=== PATIENT | female | born 1940 | race Caucasian/White ===

== ENCOUNTER → 2016-03-25 | Outpatient (CLI) | payer MEDICARE, BC ==
[~2016-03-25] MED LIST: ALBU6.7H INH; AMLO10 PO; AMLO10TA2 PO; ATOR40TA16 PO; AZIT500T2 PO; CEPH500C PO; CICL8KIT2 TOPICAL; DOXY100C PO; ESZO1TAB3 PO; ESZO1TAB4 PO; ESZO3TAB4 PO; FERR325T PO; GABA100C4 PO; HYDR2.5C TOPICAL; LORA1TAB12 PO; LOSA100T PO; METF-382 PO; METO25TA3 PO; OMEP40CA2 PO; PERC5TAB12 PO; PERI8.6T PO; PULM90IN INH; SALM50I INH; SITA1TAB2 PO; TELM1TAB PO; TRAM50TA PO; Test Strips; VALS1TAB64 PO
[2016-03-25 12:26] LABS: POTASSIUM 4.3 MEQ/L (3.5-5.1)
== END ==
LOC: CLAB 11:28
PROVIDERS: ATTEND Internal Medicine Interventional Cardiology
DX: R94.31 Abnormal electrocardiogram [ECG] [EKG] (principal); R94.39 Abnormal result of other cardiovascular function study; I77.9 Disorder of arteries and arterioles, unspecified; I25.10 Atherosclerotic heart disease of native coronary artery without angina pectoris; R42 Dizziness and giddiness; I10 Essential (primary) hypertension; E78.2 Mixed hyperlipidemia; Z68.26 Body mass index [BMI] 26.0-26.9, adult
CPT/HCPCS: 36415; 82565; 84132; 84295; 84520

== ENCOUNTER → 2016-04-06 | Outpatient (CLI) | payer MEDICARE, BC ==
[~2016-04-06] VITALS: Ht 175.3 cm; Wt 78.2 kg
[~2016-04-06] MED LIST changes: +BENZOCAINE 20% ORAL SPR 60 ML CAN OROPHARYNG ONE; +LIDOCAINE HCL 2% 100 MG/5 ML SYRINGE OTHER ONE
[2016-04-06 07:12] VITALS: BP 163/68; PULSE 60; RESP 16; TEMP 97.6; O2SAT 96
== END ==
LOC: HEND 06:39
PROVIDERS: ATTEND Internal Medicine Gastroenterology
DX: K21.0 Gastro-esophageal reflux disease with esophagitis (principal)
CPT/HCPCS: 91010

== ENCOUNTER 2016-07-20 09:30 | Inpatient (IN) | payer MEDICARE, BC ==
[~2016-07-20] VITALS: Ht 177.8 cm; Wt 72.9 kg
[2016-07-20] VITALS (9 sets, daily range): BP systolic 101–190; BP diastolic 50–91; PULSE 74–92; RESP 16–20; TEMP 98–98.1; O2SAT 95–98
[~2016-07-20 09:30] MED LIST changes: -AMLO10 PO; -AMLO10TA2 PO; -AZIT500T2 PO; -BENZOCAINE 20% ORAL SPR 60 ML CAN OROPHARYNG ONE; -CEPH500C PO; -CICL8KIT2 TOPICAL; -DOXY100C PO; -ESZO1TAB4 PO; -ESZO3TAB4 PO; -FERR325T PO; -GABA100C4 PO; -LIDOCAINE HCL 2% 100 MG/5 ML SYRINGE OTHER ONE; -PERC5TAB12 PO; -PERI8.6T PO; -TELM1TAB PO; -TRAM50TA PO; -VALS1TAB64 PO
[2016-07-20] MEDS ORDERED: SODIUM CHLOR 0.9% 1000 ML INJ 1,000 ML IV ONE ×2 (09:39→11:15)
[2016-07-20] MEDS ORDERED: ESZO3TAB4 PO (09:42)
[2016-07-20 09:53] LABS: I-STAT POTASSIUM 3.5 MMOL/L (3.5-4.9); I-STAT SODIUM 127 MMOL/L (138-146)
[2016-07-20 09:55] LABS: BASOPHIL # 0.1 TH/MM3 (0-0.2); BASOPHIL % 0.6 % (0.0-2.0); EOSINOPHIL # 0.1 TH/MM3 (0-0.4); EOSINOPHIL % 0.6 % (0.0-4.0); HEMATOCRIT 41.8 % (35.0-46.0); HEMO FLAGS DIFF FINAL; LYMPH % 20.2 % (9.0-44.0); LYMPHOCYTE # 2.3 TH/MM3 (1.0-4.8); MEAN CELL VOLUME 84.5 FL (80.0-100.0); MEAN CORPUSCULAR HEMOGLOBIN 28.8 PG (27.0-34.0); MONO % 7.8 % (0.0-8.0); NEUT % 70.8 % (16.0-70.0); PLATELET COUNT 322 TH/MM3 (150-450); RED BLOOD COUNT 4.94 MIL/MM3 (4.00-5.30); RED CELL DISTRIBUTION WIDTH 15.2 % (11.6-17.2); WHITE BLOOD COUNT 11.4 TH/MM3 (4.0-11.0)
--- NOTE | 2016-07-20 09:56 | RADRPT ---
EXAM DATE/TIME: 07/20/2016 09:43 [place] COMPARISON: No previous studies available for comparison. INDICATIONS : Aphasia, which has resolve. Fall with laceration to back of head RADIATION DOSE: 56.35 CTDIvol (mGy) This report was called by Alfred Moran at 09 50 MEDICAL HISTORY : Unobtainable SURGICAL HISTORY : Unobtainable ENCOUNTER: Initial ACUITY: 1 day PAIN SCALE: 3/10 LOCATION: occipital TECHNIQUE: Multiple contiguous axial images were obtained of the head. Using automated exposure control and adj ustment of the mA and/or kV according to patient size, radiation dose was kept as low as reasonably a chievable to obtain optimal diagnostic quality images. FINDINGS: The ventricles are symmetric and normal. No abnormal extra-axial fluid collections are identified. Th ere is no evidence of intracranial mass or hemorrhage. There is patchy mild chronic appearing white m atter disease. There is scalp swelling in the high convexity left parietal region without evidence of underlying sku ll fracture. CONCLUSION: No acute intracranial findings El Simon MD on July 20, 2016 at 9:48 Board Certified Radiologist. This report was verified electronically.
[2016-07-20 10:03] LABS: APTT (PATIENT) 25.9 SEC (24.3-30.1); PROTHROMBIN TIME - PATIENT 10.9 SEC (9.8-11.6)
[2016-07-20 10:14] LABS: BETA HCG QUANT LESS THAN 1 MIU/ML (0-5)
--- NOTE | 2016-07-20 10:14 | PD ---
HPI Chief Complaint: Stroke Alert Time Seen by Provider: 09:39 Travel History International Travel<30 days: No Contact w/Intl Traveler<30days: No Traveled to known affect area: No History of Present Illness HPI 76-year-old female came to the emergency room brought by EMS as a stroke alert. As per the history by wallpaper cleaner and patient she got out of her bed and got dizzy and lightheaded. She felt like she was going to pass out and lost her balance. Her who is 77 years old tried to catch her but was unable to. Patient ended up landing on the floor and smacked the back of her head. Patient denies complete loss of consciousness at any point and she had bleeding from her scalp due to the fall. EMS was called and when they had her in the ambulance being transported patient started to have trouble speaking and getting her words out. As per the paramedics this was abrupt. At one second she was speaking fluently and the next she was having trouble getting her words out. Even the patient noticed this. This was at 9:12 AM. That is when a stroke alert was called. Patient takes 1 baby aspirin every day. By the time she appeared in the emergency room she seemed a little dazed but was answering questions slowly but appropriately. She was AAO 3. Vital signs were relatively stable. Her head was bandaged by the paramedics. Patient says that her last tetanus shot was within past 5 years. 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 [facility] Past Medical History Narrative Medical List of her past medical, surgical, social and family history is reviewed from the nursing note. Arthritis: Yes Asthma: Yes Autoimmune Disease: No Anxiety: Yes (lorazepam) Depression: No Cancer: No Cardiovascular Problems: No Chemotherapy: No Diabetes: Yes Patient Takes Glucophage: Yes (METFORMIN ) Endocrine: Yes Gastrointestinal Disorders: Yes (REFLUX) Genitourinary: No Hepatitis: No Hiatal Hernia: Yes Hypertension: Yes Immune Disorder: No Musculoskeletal: Yes (LUMBAR/SACRAL SX) Neurologic: No Psychiatric: No Reproductive: No Respiratory: Yes (ASTHMA) Immunizations Current: Yes Radiation Therapy: No Thyroid Disease: No Past Surgical History Abdominal Surgery: No AICD: No Cardiac Surgery: No Ear Surgery: No Endocrine Surgery: No Eye Surgery: Yes Genitourinary Surgery: No Gynecologic Surgery: No Joint Replacement: Yes Oral Surgery: No Pacemaker: No Thoracic Surgery: No Social History Alcohol Use: No Tobacco Use: No Substance Use: No Allergies-Medications (Allergen,Severity, Reaction): Coded Allergies: No Known Allergies (Verified , 07/20/16) Comments No known drug allergies. Reported Meds & Prescriptions Reported Meds & Active Scripts Active Pulmicort Flexhaler (Budesonide Powder Inh) 90 Mcg/Act Inhp 90 Mcg INH Q12HR Omeprazole 40 Mg Cap 40 Mg PO DAILY Metoprolol Tartrate 25 Mg Tab 25 Mg PO BID Metformin ER (Metformin HCl) 1,000 Mg Zohreh 2,000 Mg PO HS With evening meal Atorvastatin (Atorvastatin Calcium) 40 Mg Tab 40 Mg PO HS Losartan (Losartan Potassium) 100 Mg Tab 100 Mg PO DAILY Januvia (Sitagliptin Phosphate) 100 Mg Tab 100 Mg PO DAILY Lorazepam 1 Mg Tab 1 Mg PO BID PRN Reported Lunesta (Eszopiclone) 3 Mg Tab 3 Mg PO HS PRN Serevent Diskus Inh (Salmeterol Xinafoate) 50 Mcg/Act Aero 2 Inhaler INH DAILY Proventil Hfa 6.7 GM Inh (Albuterol Sulfate) 90 Mcg/Act Aer 2 Puff INH Q4H PRN Narrative Medication List of her home medications reviewed from the nursing note. Review of Systems Except as stated in HPI: all other systems reviewed are Neg Physical Exam Narrative GENERAL: Awake, seems a little confused, mild distress SKIN: Focused skin assessment warm/dry. Pale HEAD: Occipital area of the scalp is bandaged. Underneath there is clotted blood that's mattering the hair. Unable to currently determine the exact laceration spot because of this. EYES: Pupils equal and round. No scleral icterus. No injection or drainage. ENT: No nasal bleeding or discharge. Mucous membranes pink and moist. NECK: Trachea midline. No JVD. CARDIOVASCULAR: Regular rate and rhythm. No murmur appreciated. RESPIRATORY: No accessory muscle use. Clear to auscultation. Breath sounds equal bilaterally. GASTROINTESTINAL: Abdomen soft, non-tender, nondistended. Hepatic and splenic margins not palpable. MUSCULOSKELETAL: No obvious deformities. No clubbing. No cyanosis. No edema. NEUROLOGICAL: Awake and alert. No obvious cranial nerve deficits. Motor grossly within normal limits. Normal speech. Patient is slightly confused and answering questions and slightly slow. However NIH stroke score is 0. PSYCHIATRIC: Appropriate mood and affect; insight and judgment normal. Data Data Last Documented VS Vital Signs Date Time Temp Pulse Resp B/P Pulse Ox O2 Delivery O2 Flow Rate FiO2 07/20/16 09:35 98 Nasal Cannula 2.00 07/20/16 09:33 74 18 190/91 Orders Diet Npo (07/20/16 Breakfast) Activity Bed Rest (07/20/16 ) Electrocardiogram (07/20/16 ) I-Stat Creatinine (07/20/16 09:39) I-Stat Profile (07/20/16 09:39) Prothrombin Time / Inr (Pt) (07/20/16 09:39) Act Partial Throm Time (Ptt) (07/20/16 09:39) Complete Blood Count With Diff (07/20/16 09:39) Fibrinogen (07/20/16 09:39) Creatine Kinase (Cpk) (07/20/16 09:39) Troponin I (07/20/16 09:39) Ua Includes Microscopic (07/20/16 09:39) Drug Screen, Random Urine (07/20/16 09:39) Type And Screen (07/20/16 09:39) Ct Brain W/O Iv Contrast(Rout) (07/20/16 ) Beta Hcg (Quant/Titer) (07/20/16 09:39) Consult Neurology (07/20/16 ) Blood Glucose (07/20/16 09:39) Ecg Monitoring (07/20/16 09:39) Neuro Checks Q2HX12,Q4H (07/20/16 09:39) Nursing Bedside Swallow Assess .ONCE (07/20/16 09:39) Iv Access Insert/Monitor (07/20/16 09:39) NPO (07/20/16 09:39) Oximetry (07/20/16 09:39) Oxygen Administration (07/20/16 09:39) Sodium Chlor 0.9% 1000 Ml Inj (Ns 1000 M (07/20/16 09:39) Resp Oxygen Dariel C Titrat 1-4 L (07/20/16 09:39) Cath For Specimen (07/20/16 09:39) (Hub Use Only)Inp Phy Cons/Ref (07/20/16 ) Morphine Inj (Morphine Inj) (07/20/16 10:45) Ondansetron Inj (Zofran Inj) (07/20/16 10:45) Complete Blood Count With Diff (07/20/16 11:09) Sodium Chlor 0.9% 1000 Ml Inj (Ns 1000 M (07/20/16 11:15) Admit Order (Ed Use Only) (07/20/16 11:17) Us Carotid Arteries Comp Bilat (07/20/16 ) Labs Laboratory Tests Test 07/20/16 07/20/16 09:32 11:15 White Blood Count 11.4 TH/MM3 13.5 TH/MM3 Red Blood Count 4.94 MIL/MM3 4.28 MIL/MM3 Hemoglobin 14.2 GM/DL 12.0 GM/DL Bedside Hemoglobin 15.3 G/DL Hematocrit 41.8 % 36.6 % Bedside Hematocrit 45.0 % Mean Corpuscular Volume 84.5 FL 85.5 FL Mean Corpuscular Hemoglobin 28.8 PG 28.0 PG Mean Corpuscular Hemoglobin 34.0 % 32.8 % Concent Red Cell Distribution Width 15.2 % 15.3 % Platelet Count 322 TH/MM3 316 TH/MM3 Mean Platelet Volume 7.9 FL 7.7 FL Neutrophils (%) (Auto) 70.8 % 77.1 % Lymphocytes (%) (Auto) 20.2 % 15.5 % Monocytes (%) (Auto) 7.8 % 6.8 % Eosinophils (%) (Auto) 0.6 % 0.3 % Basophils (%) (Auto) 0.6 % 0.3 % Neutrophils # (Auto) 8.0 TH/MM3 10.4 TH/MM3 Lymphocytes # (Auto) 2.3 TH/MM3 2.1 TH/MM3 Monocytes # (Auto) 0.9 TH/MM3 0.9 TH/MM3 Eosinophils # (Auto) 0.1 TH/MM3 0.0 TH/MM3 Basophils # (Auto) 0.1 TH/MM3 0.0 TH/MM3 CBC Comment DIFF FINAL DIFF FINAL Differential Comment Prothrombin Time 10.9 SEC Prothromb Time International 1.0 RATIO Ratio Activated Partial 25.9 SEC Thromboplast Time Fibrinogen 389 mg/dL Bedside Sodium 127 MMOL/L Bedside Potassium 3.5 MMOL/L Bedside Chloride 90 MMOL/L Bedside Blood Urea Nitrogen 6 MG/DL Bedside Creatinine 0.7 MG/DL Bedside Glucose 137 MG/DL Total Creatine Kinase 45 U/L Troponin I LESS THAN 0.02 NG/ML Human Chorionic Gonadotropin, LESS THAN 1 Quant MIU/ML Blood Type B POSITIVE Antibody Screen NEGATIVE MDM Medical Decision Making Medical Screen Exam Complete: Yes Emergency Medical Condition: Yes Medical Record Reviewed: Yes Interpretation(s) Twelve-lead EKG was reviewed by me. Normal sinus rhythm, left axis deviation, old anterior and inferior NC, nonspecific ST-T wave changes. Heart rate of 75 bpm. Differential Diagnosis TIA, intracranial bleed, concussion Narrative Course 10:[address] scan report is within normal limits. After returning from CT patient was fully awake and answering questions appropriately. Her is in the room and gave additional history saying that patient has been presyncopal previous 2 times in this past 1 week. The patient also told me that she has had some numbness and weakness of her left upper extremity that lasted for 10 minutes few days ago. I discussed the case with Dr. Singer who is guest relations receptionist for neurology since a stroke alert was called. He agreed with the fact that since all the symptoms have resolved currently this does not qualify for a stroke alert any longer. Since all the workup is so far negative I'll admit her for TIA. The nurses cleaning up the wound so that I can take a look at the laceration which might require nguyen. 10:52 AM awaiting for the residents to call back for admission. The tech is currently cleansing the wound so that the blood is off and I can take a look at the wound after staple. Patient has been complaining of headache meanwhile. I' ve ordered morphine and Zofran. 11:31 AM patient had an episode where she became unresponsive although eyes were open. The nurses called me in the room. This was in the middle of cleaning her wound. I went to see the patient she was pale, eyes open. I asked her how she was feeling and she tried to "mouth the word" okay with no sound came out. She was asked to squeeze my hand and she squeezed it. Seems like she was following commands but mostly phonate. Her blood pressure was unrecordable and there was a lot of blood from the scalp wound that soaked multiple towels and sheets. I asked the nurses to take the wet sheets off and I had to cut the hair in order to get to the scalp laceration. Finally I noticed a 2 cm laceration in the occipital area. I stapled it with 5 nguyen. Ice pack was applied to keep the bleeding down. Patient was covered with multiple warm blankets. I let the blood pressure was recorded initially as 100 systolic followed by 95 systolic. She was getting 1 L of IV fluid wide open with a pressure back. I was just told by the nurse that her current blood pressure is 135 systolic. Spoke with the residents and asked them to admit her to the CICU. In my opinion the syncopal episode could've been vasovagal or from the blood loss and hypertension. I have ordered a second CBC to see the H& H. Critical Care Narrative Aggregate critical care time was 60 minutes. Time to perform other separately billable procedures was not included in the critical care time. My time did not include minutes spent treating any other patients simultaneously or on activities that did not directly contribute to the patient's treatment. The services I provided to this patient were to treat and/or prevent clinically significant deterioration that could result in: Initial stroke alert, playful unresponsive., Scalp hemorrhage, hypotension , fluid resuscitation I provided critical care services requiring my management, as noted below: Chart data review, documentation time, medication orders and management, vital sign assessments/reviewing monitor data, ordering and reviewing lab tests, ordering and interpreting/reviewing x-rays and diagnostic studies, care of the patient and discussion of the patient with the admitting physicians. Procedures EKG Prior to Arrival: Yes Physician Communication Physician Communication Dr. Singer Diagnosis Primary Impression: TIA (transient ischemic attack) Qualified Code: G45.9 - Transient cerebral ischemia, unspecified type Additional Impressions: Pre-syncope Head injury Qualified Code: S09.90XA - Head injury, initial encounter Scalp laceration Qualified Code: S01.01XA - Scalp laceration, initial encounter Hyponatremia Admitting Information Admitting Physician Requests: Observation Darren Moran MD July 20, 2016 10:14
[2016-07-20 10:21] LABS: CREATINE KINASE 45 U/L (26-192)
[2016-07-20] MEDS ORDERED: MORPHINE SULFATE 4 MG/ML INJ IV PUSH ONE (10:45)
[2016-07-20] MEDS ORDERED: ONDANSETRON HCL 4 MG/2 ML VIAL IV PUSH ONE (10:45)
[2016-07-20 11:26] LABS: AUTOMATED NEUTROPHIL # 10.4 TH/MM3 (1.8-7.7); BASOPHIL % 0.3 % (0.0-2.0); EOSINOPHIL % 0.3 % (0.0-4.0); HEMATOCRIT 36.6 % (35.0-46.0); HEMO FLAGS DIFF FINAL; LYMPH % 15.5 % (9.0-44.0); LYMPHOCYTE # 2.1 TH/MM3 (1.0-4.8); MEAN CELL VOLUME 85.5 FL (80.0-100.0); MEAN CORPUSCULAR HGB CONC 32.8 % (32.0-36.0); MONO % 6.8 % (0.0-8.0); NEUT % 77.1 % (16.0-70.0); PLATELET COUNT 316 TH/MM3 (150-450); RED BLOOD COUNT 4.28 MIL/MM3 (4.00-5.30); RED CELL DISTRIBUTION WIDTH 15.3 % (11.6-17.2); WHITE BLOOD COUNT 13.5 TH/MM3 (4.0-11.0)
--- NOTE | 2016-07-20 11:35 | HHI.HP ---
[facility] Service Family Medicine [facility] Zach Wilson Primary Care Physician Antonio Lr MD Admission Diagnosis syncope, scalp hemorrhage, TIA Diagnoses: International Travel<30 Days: No Contact w/Intl Traveler<30days: No Known Affected Area: No History of Present Illness This is a 76-year-old female presented today via [facility] after sustaining a fall. Apparently the patient got up this morning and felt dizzy and lightheaded. She lost her balance and fell hitting the back of her head on the ground. It does not appear that the patient lost any consciousness but had significant bleeding from her head injury. EMS was called and during transport the patient has what sounds like an expressive aphasia. Per the paramedics this was abrupt in onset. She was brought in by stroke alert. By this and the patient arrived in the ER she was completely alert and oriented and her speech was intact. It was slow but she will appeared to be almost back to her baseline. ER physician spoke with the neurologist on-call and because the patient's neurological symptoms had essentially resolved the stroke alert was canceled. The patient's bandage was removed from her head laceration in the ER, a large amount of blood and clots were removed. During this time the patient became pale and had decreased responsiveness. She was given some IV fluids and her laceration was stapled. At this point she became more alert. Patient's hemoglobin was stable at 14 upon admission, it was repeated due to the significant blood noted in her laceration, and is now 12. The patient has been is at bedside and reported that the patient has had 2 presyncopal events recently. During my exam the patients mental status waxed and waned. At times she was alert and appropriate, at other times, which was the majority, she responded in appropriately and had a difficult time finding her words. The patient does exam that she fell today because she felt dizzy. She states that she was conscious through the entire event. She states she hit her head on the door way and her came to help her. She states for the past two weeks she has not felt well. She states she felt that she has been "warming up". I asked if she felt like she was warm like having a fever and she said no. She agrees that she is having a hard time saying her words although she knows what she wants to say, and that this started when she was in [place]. (Thalia Hansen MD R3) Review of Systems ROS Limitations: Clinical Condition, Altered Mental Status, Other Cardiovascular: DENIES: Chest pain, Palpitations, Syncope Gastrointestinal: DENIES: Abdominal pain Musculoskeletal: COMPLAINS OF: Joint pain, Back pain Neurologic: COMPLAINS OF: Abnormal gait, Headache, Localized weakness, Speech Problems, Poor Balance (Thalia Hansen MD R3) Past Family Social History Past Medical History Diabetes, asthma, hyperlipidemia, hypertension, gastroparesis, basal cell carcinoma, history of anxiety Past Surgical History Cataract extraction (2004) cardiac surgery (cardiac cath 01/2000) Reported Medications Pulmicort Flexhaler (Budesonide Powder Inh) 90 Mcg/Act Inhp 90 Mcg INH Q12HR Omeprazole 40 Mg Cap 40 Mg PO DAILY Metoprolol Tartrate 25 Mg Tab 25 Mg PO BID Metformin ER (Metformin HCl) 1,000 Mg Zohreh 2,000 Mg PO HS With evening meal Atorvastatin (Atorvastatin Calcium) 40 Mg Tab 40 Mg PO HS Losartan (Losartan Potassium) 100 Mg Tab 100 Mg PO DAILY Januvia (Sitagliptin Phosphate) 100 Mg Tab 100 Mg PO DAILY Lorazepam 1 Mg Tab 1 Mg PO BID PRN Lunesta (Eszopiclone) 3 Mg Tab 3 Mg PO HS PRN Serevent Diskus Inh (Salmeterol Xinafoate) 50 Mcg/Act Aero 2 Inhaler INH DAILY Proventil Hfa 6.7 GM Inh (Albuterol Sulfate) 90 Mcg/Act Aer 2 Puff INH Q4H PRN ( Thalia Hansen MD R3) Allergies: Coded Allergies: No Known Allergies (Verified , 07/20/16) Physical Exam Vital Signs Vital Signs Date Time Temp Pulse Resp B/P Pulse Ox O2 Delivery O2 Flow Rate FiO2 07/20/16 09:35 98 Nasal Cannula 2.00 07/20/16 09:33 74 18 190/91 98 07/20/16 09:32 73 18 98 Nasal Cannula 07/20/16 09:32 98 Nasal Cannula Physical Exam GENERAL: This is a well-nourished, well-developed patient, very drowsy but arousable SKIN: blood in hair, apprx 2-3cm laceration on scalp occipital region, nguyen present, not actively bleeding HEAD:see above. EYES: Pupils equal round and reactive. Extraocular motions intact. No scleral icterus. No injection or drainage. ENT: Nose without bleeding, purulent drainage or septal hematoma. Throat without erythema, tonsillar hypertrophy or exudate. Uvula midline. Airway patent. NECK: Trachea midline. No JVD or lymphadenopathy. Supple, nontender, no meningeal signs. CARDIOVASCULAR: Regular rate and rhythm without murmurs, gallops, or rubs. RESPIRATORY: Clear to auscultation. Breath sounds equal bilaterally. No wheezes , rales, or rhonchi. GASTROINTESTINAL: Abdomen soft, non-tender, nondistended. No hepato-splenomegaly , or palpable masses. No guarding. MUSCULOSKELETAL: Extremities without clubbing, cyanosis, or edema. No joint tenderness, effusion, or edema noted. No calf tenderness. Negative Homans sign bilaterally. NEUROLOGICAL: Limited due to patient in ability to participate at times due to falling asleep or confusion: Motor and sensory grossly within normal limits. Right pronator drift present. Smile symmetric. Able to furrow eye brows. Expressive aphasia present. Alert to self. Not consistently able to answer questions or follow directions appropriately. Strength LE +. 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 Laboratory Laboratory Tests Test 07/20/16 07/20/16 09:32 11:15 White Blood Count 11.4 13.5 Red Blood Count 4.94 4.28 Hemoglobin 14.2 12.0 Bedside Hemoglobin 15.3 Hematocrit 41.8 36.6 Bedside Hematocrit 45.0 Mean Corpuscular Volume 84.5 85.5 Mean Corpuscular Hemoglobin 28.8 28.0 Mean Corpuscular Hemoglobin 34.0 32.8 Concent Red Cell Distribution Width 15.2 15.3 Platelet Count 322 316 Mean Platelet Volume 7.9 7.7 Neutrophils (%) (Auto) 70.8 77.1 Lymphocytes (%) (Auto) 20.2 15.5 Monocytes (%) (Auto) 7.8 6.8 Eosinophils (%) (Auto) 0.6 0.3 Basophils (%) (Auto) 0.6 0.3 Neutrophils # (Auto) 8.0 10.4 Lymphocytes # (Auto) 2.3 2.1 Monocytes # (Auto) 0.9 0.9 Eosinophils # (Auto) 0.1 0.0 Basophils # (Auto) 0.1 0.0 CBC Comment DIFF FINAL DIFF FINAL Differential Comment Prothrombin Time 10.9 Prothromb Time International 1.0 Ratio Activated Partial 25.9 Thromboplast Time Fibrinogen 389 Bedside Sodium 127 Bedside Potassium 3.5 Bedside Chloride 90 Bedside Blood Urea Nitrogen 6 Bedside Creatinine 0.7 Bedside Glucose 137 Total Creatine Kinase 45 Troponin I LESS THAN 0.02 Human Chorionic Gonadotropin, LESS THAN 1 Quant Blood Type B POSITIVE Antibody Screen NEGATIVE (Thalia Hansen MD R3) Result Diagram: 07/20/16 1115 Imaging Last Impressions Head CT 07/20/16 0000 Signed Impressions: Service Date/Time: Wednesday, July 20, 2016 09:43 - CONCLUSION: No acute intracranial findings El Simon MD (Thalia Hansen MD R3) Assessment and Plan Assessment and Plan 76-year-old female presents after syncopal also with TIA. Code Status Full (patient not able to answer question appropriately) Discussed Condition With ED doc Dr. Eden (Thalia Hansen MD R3) Attending Attestation THIS CASE WAS DISCUSSED WITH THE RESIDENT PHYSICIANS. I HAVE REVIEWED THE RECORD AND AGREE WITH THE ABOVE NOTE AND PLAN OF CARE WAS DISCUSSED. I HAVE AUTHORIZED THE ORDER FOR ADMISSION TO AN IN-PATIENT STATUS. (Mario Eden MD) Problem List: (1) Pre-syncope Status: Acute Plan: Differential diagnosis includes: electrolyte abnormality vs stroke vs vasovagal versus orthostatic vs cardiogenic vs other EKG: sinus rythm, left axis, no ST elevations or depressions noted, trend Troponin negative 1, trend Sodium 127, currently on IV fluids Echo ordered Carotid ultrasound Telemetry orthostatic vitals when patient able to tolerate (2) TIA (transient ischemic attack) Status: Acute Plan: Patient acute onset of expressive aphasia while in route to the ER. CT head negative. MRI/MRA Carotid ultrasounds Echo as above Neuro already consulted and is aware of patient Lipid profile A1c Start aspirin Allow permissive hypertension NIH stroke scale Consult PT (3) Scalp laceration Status: Acute Plan: Significant blood loss noted by ED Physician. Laceration currently repaired with nguyen. (4) Hypertension Status: Chronic Plan: Hold home metoprolol, losartan Allow permissive hypertension. (5) Asthma Status: Chronic Plan: Continue patient's albuterol when necessary and Pulmicort (6) Anxiety disorder Status: Chronic Plan: Hold lorazepam for now given patient's decreased level of alertness (7) Type 2 diabetes mellitus Status: Chronic Plan: Hold patient's metformin and Januvia -Low-dose sliding scale - A1c ordered (8) FEN Status: Acute Plan: Fluids: Status post 1 L bolus. Normal saline 70 cc per hour. Electrolytes: Sodium 127, repeat BMP at 3 PM Nutrition: Bedside swallow been diabetic diet DVT prophylaxis: Bilateral SCDs given significant bleeding from laceration (Thalia Hansen MD R3) Physician Certification 2 Midnight Certification Type: Admission for Inpatient Services Order for Inpatient Services The services are ordered in accordance with Medicare regulations or non- Medicare payer requirements, as applicable. In the case of services not specified as inpatient-only, they are appropriately provided as inpatient services in accordance with the 2-midnight benchmark. Estimated LOS (days): 3 days is the estimated time the patient will need to remain in the hospital, assuming treatment plan goals are met and no additional complications. Post-Hospital Plan: Not yet determined (Thalia Hansen MD R3) Problem Qualifiers (1) TIA (transient ischemic attack): Qualified Code: G45.9 - Transient cerebral ischemia, unspecified type (2) Scalp laceration: Qualified Code: S01.01XA - Scalp laceration, initial encounter Thalia Hansen MD R3 July 20, 2016 11:35 Mario Eden MD July 20, 2016 16:51
[2016-07-20] MEDS ORDERED: GLUCAGON 1 MG/ML VIAL OTHER PRN (11:45)
[2016-07-20] MEDS ORDERED: ASPIRIN 325 MG TAB PO SCH (12:00)
[2016-07-20] MEDS ORDERED: ALBUTEROL SULFATE 90 MCG/ACT HFA 18 GM INHALER INH PRN (12:45)
--- NOTE | 2016-07-20 12:55 | RADRPT ---
EXAM DATE/TIME: 07/20/2016 12:05 [facility] COMPARISON: No previous studies available for comparison. INDICATIONS : Syncope. MEDICAL HISTORY : Hypertension. Hernia, hiatal. Arthritis. Hyperlipidemia. Diabetes. SURGICAL HISTORY : Total knee replacement, right. Cardiac cath. Spinal surgery. ENCOUNTER: Initial ACUITY: 1 day PAIN SCORE: 5/10 LOCATION: Head. PEAK SYSTOLIC VELOCITIES (cm/sec): ICA/CCA RATIO: Right: 1.6 Left: 1.3 ICA: Right: 113 Left: 102 CCA: Right: 69 Left: 81 ECA: Right: 197 Left: 157 VERTEBRAL: Right: 46 antegrade Left: 46 antegrade Elevated flow velocities and ICA/CCA ratios have been found to correlate with increased degrees of vessel stenosis, calculated as percentage of diameter relative to a normal segment of distal ICA/CCA FINDINGS: RIGHT CAROTID: Calcified atherosclerotic plaque involving the carotid bulb and ICA origin with less than 50% narrowi ng by grayscale analysis. The waveforms are within normal limits. LEFT CAROTID: Calcified atherosclerotic plaque involving the carotid bulb and ICA origin with less than 50% narrowi ng by grayscale analysis. The waveforms are within normal limits. VERTEBRAL ARTERIES: Antegrade flow is seen in both vertebral arteries. MISCELLANEOUS: None. CONCLUSION: 1. Calcified plaque bilaterally with less than 50% stenoses. 2. Antegrade flow involving both vertebral arteries. Kurt Mas Jr., MD on July 20, 2016 at 12:51 Board Certified Radiologist. This report was verified electronically.
--- NOTE | 2016-07-20 14:25 | RADRPT ---
EXAM DATE/TIME: 07/20/2016 12:58 [facility] COMPARISON: MRI BRAIN W/O CONTRAST, July 20, 2016, 12:58. CT BRAIN W/O CONTRAST, July 20, 2016, 9:43. INDICATIONS : Decreases level of consciousness after fall with lac on head. MEDICAL HISTORY : Hypertension. Diabetes mellitus type 2. SURGICAL HISTORY : knee replacement, spinal surgery. ENCOUNTER: Initial ACUITY: 1 day PAIN SCORE: 6/10 LOCATION: cranial Please note a normal MRA of the brain does not entirely exclude the possibility of a small aneurysm, nor the possibility of distal intracranial vessel disease. TECHNIQUE: 3D time of flight MRA was performed. Source images, multiplanar STS MIP, and 3D volume MIP reconstru ctions were reviewed. FINDINGS: There is excellent visualization of the major intracranial arteries out to the second-order branch ve ssels. There is no evidence for aneurysm, vessel truncation or stenosis, and no evidence for vascula r malformation. CONCLUSION: Normal examination. El Simon MD on July 20, 2016 at 14:18 Board Certified Radiologist. This report was verified electronically.
--- NOTE | 2016-07-20 16:11 | MB ---
cc: KEREN DESIR MD DATE OF CONSULTATION 07/20/2016 REASON FOR CONSULTATION: Stroke alert. HISTORY OF PRESENT ILLNESS Ms. Díaz is a 76-year-old female who came to the [facility] Emergency Room by EMS as a stroke alert. The patient got out of bed, felt dizzy and lightheaded, and she felt like she was going to pass out and lost her balance. Her tried to catch her and stop her from falling but he was not able to, hence, she landed on the floor and hit the side of the door, questionable this was jammed and hit the back of her head. The patient states that this is the third episode in over a month where she feels lightheaded usually when she is upright position, especially after being long seated or late in bed. Two of those episodes happened where the was able to catch her before she fell. During this incident the patient states that she did not witness any convulsions, foaming, tongue biting or loss of sphincter control and there was no reported postictal confusional state and she always becomes "limp" in his hands. The patient states that she has been having these episodes lately and always related to being up. But this time she fell and hit her head because he was not able to catch her. The patient denies any slurring of speech, double vision, blurred vision. Upon arrival there was bleeding from her scalp due to the fall. However, during the transport there was reported trouble speaking and getting words out, but according to the emergency room physician she was speaking fluently. And then suddenly she had trouble getting the words out. The patient is on aspirin 81 mg daily for the last month. The patient states that she was diagnosed with carotid artery disease. And she reports a TIA in the year 1999 where she felt left side of the face, left upper extremity numbness that lasted 30 minutes. At this time she also reports that on Wednesday she felt the left side of her lip and face along with the left upper extremity being numb for less than 10 minutes with no residual symptoms. The patient has positive family history of stroke, two brothers who are younger than her with a diagnosis of brain aneurysm. Actually the stroke alert was cancelled because the patient did not meet criteria of stroke alert and it was considered a TIA / syncope with head injury and concussion. The patient states that she has had experienced over the last eight day a new headache that is mainly band-like on both sides of the forehead, temples and runs back described as "pulsating" with no visual symptoms and almost constant. No ringing in the ears. She thought that this is a sinus headache. REVIEW OF SYSTEMS A 12-point review of systems is negative except for what is stated in the HPI. PAST MEDICAL HISTORY 1. Diabetes. 2. Asthma. 3. Hyperlipidemia. 4. Hypertension. 5. Gastroparesis. 6. Basal cell cancer. 7. Anxiety. PAST SURGICAL HISTORY 1. Cataract extraction. 2. Cardiac catheterization in the year 1999. FAMILY HISTORY Two brothers with stroke and brain aneurysms. MEDICATIONS 1. Omeprazole. 2. Metoprolol. 3. Metformin. 4. Atorvastatin. 5. Losartan. 6. Januvia. 7. Lorazepam. 8. Lunesta. 9. Proventil. 10. Aspirin 81. ALLERGIES No known allergies. PHYSICAL EXAMINATION GENERAL: Awake, alert, oriented, intact, good historian. Not in distress. HEENT: Site of bleeding and nguyen present in the back of her scalp with a blood on her hair. HEENT: Intact hearing and intact vision. NECK: Trachea in the midline. No signs of meningeal irritation or lymphadenopathy. CARDIOVASCULAR: Regular rate and rhythm. RESPIRATORY: Clear to auscultation. No wheezes. GASTROINTESTINAL: Soft abdomen, nontender. MUSCULOSKELETAL: Extremities without clubbing, cyanosis or edema. Moves extremities equally. NEUROLOGIC: Awake, alert, oriented to time, person and place. Mild slurring of speech / questionable chronic. No element of dysphagia is noted. Cranial nerve examination II-XII are grossly intact. Upper extremities 5/5 bilateral, symmetrical. No abnormal movement. Normal tone. Bilateral lower extremity 5-/5 bilateral hip flexion, hip extension 5/5, knee extension 5-/5 bilateral, symmetrical. Knee flexion 5/5. Foot dorsiflexion and plantar flexion 5/5. Intact sensation bilateral symmetrical. Reflexes 1+ bilateral symmetrical upper extremities bilateral knees with sluggish / diminished bilateral ankle reflexes. Plantars are bilaterally downgoing. LABORATORY DATA White blood cells 13.5, hemoglobin 12, platelet 316.INR 1.0. Sodium 127, BUN 6, creatinine 0.7, glucose 137.CK 45. Troponin less than 0.02. IMAGING - Head CT scan with no acute intracranial finding. - Head MRA normal examination. - Carotid ultrasound calcified plaque bilateral with less than 50% stenosis. Antegrade flow involving both vertebral arteries. DIAGNOSTIC IMPRESSION 1. Syncopal episodes. - Likely etiology given the association with an upright posture with symptoms pertinent cardiovascular etiology. 2. Transient ischemic attack. 3. Carotid artery disease. 4. Positive family history of brain aneurysm. 5. Hypertension. 6. Diabetes. PLAN 1. Neurological checks q. four hourly. 2. MRI brain. 3. Telemetry. 4. Head CTA. 5. Echo. 6. Orthostatic vitals. 7. Fall precautions. 8. DVT prophylaxis. Thank you for the opportunity to participate in the care of your patient. MD ANGELA Pearson/NORMAN /2:52 PM /3:39 PM WING
--- NOTE | 2016-07-20 16:14 | RADRPT ---
EXAM DATE/TIME: 07/20/2016 12:58 [facility] COMPARISON: CT BRAIN W/O CONTRAST, July 20, 2016, 9:43. INDICATIONS : Decreases level of consciousness after fall with lac on head. MEDICAL HISTORY : Hypertension. Diabetes mellitus type 2. SURGICAL HISTORY : knee replacement, spinal surgery ENCOUNTER: Initial ACUITY: 1 day PAIN SCORE: 6/10 LOCATION: cranial TECHNIQUE: Multiplanar, multisequence MRI of the brain was performed without contrast. FINDINGS: CEREBRUM: The ventricles are normal for age. No evidence of midline shift, mass lesion, hemorrhage or acute in farction. No extraaxial fluid collections are seen. The pituitary gland and suprasellar cistern are normal in configuration. WHITE MATTER: Scattered small foci of high T2 signal abnormality involving the periventricular white matter of both cerebral hemispheres. POSTERIOR FOSSA: The cerebellum and brainstem are intact. The 4th ventricle is midline. The cerebellopontine angle is unremarkable. The cerebellar tonsils are normal in position. DIFFUSION IMAGING: No focal areas of restricted diffusion are seen. No evidence of acute infarction. EXTRACRANIAL: The visualized portions of the orbits and paranasal sinuses are unremarkable. Right mastoid air cells are atrophic. Left are normal. Artifact is seen involving the left occipital soft tissues likely fro m soft tissue nguyen. CONCLUSION: 1. No acute intracranial abnormality. 2. Mild chronic small vessel ischemic change. Kurt Mas Jr., MD on July 20, 2016 at 16:06 Board Certified Radiologist. This report was verified electronically.
--- NOTE | 2016-07-20 16:38 | EKG ---
Date Performed: 07/20/2016 Time Performed: 09:53:47 PTAGE: 76 years EKG: Sinus rhythm LEFT AXIS DEVIATION NONSPECIFIC ST & T-WAVE ABNORMALITY ABNORMAL ECG PREVIOUS TRACING : 10/08/2014 14.50 Compared to previous tracing, nonspecific ST/T abnormalitie s are now slightly more pronounced. DOCTOR: Champ Shepherd Interpretating Date/Time 07/20/2016 16:36:55
[2016-07-20] MEDS: INSULIN ASPART SUPPLEMENTAL SCALE SQ SCH ×2 (16:40→21:00)
--- NOTE | 2016-07-20 16:51 | HHI.HP ---
[facility] Service Family Medicine Primary Care Physician Antonio Lr MD Admission Diagnosis syncope, scalp hemorrhage, TIA Diagnoses: (1) Pre-syncope (2) TIA (transient ischemic attack) (3) Scalp laceration (4) Hypertension (5) Asthma (6) Anxiety disorder (7) Type 2 diabetes mellitus (8) FEN International Travel<30 Days: No Contact w/Intl Traveler<30days: No Known Affected Area: No History of Present Illness 76-year-old female presenting to the emergency department after a fall at home, hitting her head and causing a laceration requiring nguyen. She states that she woke up this morning and stood up to begin walking and she felt dizzy/ lightheaded with the room spinning and fell backwards. She struck the posterior aspect of her head on the door frame and sustained a laceration with significant amount of bleeding. She denies losing consciousness and does remember the entire incident. She denies any seizure type activity such as bowel/bladder incontinence or tongue biting. She denies any chest pain or palpitations. She managed to call [facility] and was transported to the hospital. Apparently, during the ride to the hospital she became somewhat disoriented and had expressive aphasia in the paramedics called for stroke alert. The onset of this was sudden and lasted for only a couple of minutes. By the time she presented to the emergency department, she was speaking coherently and was completely back to her baseline without aphasia or other neurologic symptoms. She does endorse a 2 week history of falls that are similar in nature. Stating that usually during a positional change, she will become dizzy and lightheaded causing her to fall. She has not hit her head prior to this incident she says that she is able to get up and sit in a chair for a few hours and will feel normal again. She has not been evaluated for these symptoms. Review of Systems Constitutional: COMPLAINS OF: Fatigue, Dizziness, DENIES: Fever, Chills Eyes: DENIES: Blurred vision, Vision loss, Double Vision Ears, nose, mouth, throat: DENIES: Tinnitus, Hearing loss, Ear Pain Respiratory: DENIES: Cough, Wheezing, Sputum production, Shortness of breath Cardiovascular: DENIES: Chest pain, Palpitations, Syncope, Dyspnea on Exertion Gastrointestinal: DENIES: Abdominal pain, Constipation, Diarrhea, Nausea, Vomiting Musculoskeletal: DENIES: Joint pain, Back pain, Neck pain Neurologic: COMPLAINS OF: Headache, Poor Balance, DENIES: Localized weakness, Seizures Psychiatric: DENIES: Anxiety Past Family Social History Past Medical History Diabetes, asthma, hyperlipidemia, hypertension, gastroparesis, basal cell carcinoma, history of anxiety Past Surgical History Cataract extraction (2004) cardiac surgery (cardiac cath 01/2000) Allergies: Coded Allergies: No Known Allergies (Verified , 07/20/16) Physical Exam Vital Signs Vital Signs Date Time Temp Pulse Resp B/P Pulse Ox O2 Delivery O2 Flow Rate FiO2 07/20/16 14:35 Nasal Cannula 2 07/20/16 09:35 98 Nasal Cannula 2.00 07/20/16 09:33 74 18 190/91 98 07/20/16 09:32 73 18 98 Nasal Cannula 07/20/16 09:32 98 Nasal Cannula Physical Exam GENERAL: Very pleasant elderly appearing female, lying in bed in no obvious distress SKIN: 3 cm laceration on the occipital area of scalp closed with 6 nguyen, dried blood throughout the hair but no obvious active bleeding HEAD: Tender to palpation around the laceration site, no hematoma or crepitus. EYES: Pupils equal round and reactive. Extraocular motions intact. NECK: Trachea midline. No JVD or lymphadenopathy. CARDIOVASCULAR: Regular rate and rhythm without murmurs, gallops, or rubs. RESPIRATORY: Clear to auscultation. Breath sounds equal bilaterally. No wheezes , rales, or rhonchi. GASTROINTESTINAL: Abdomen soft, non-tender, nondistended. MUSCULOSKELETAL: Extremities without clubbing, cyanosis, or edema. NEUROLOGICAL: Awake, alert, oriented 3. Cranial nerves II through XII intact. Face is symmetrical without a short droop. 5/5 strength bilateral upper extremities with sensation intact. Normal cerebellar function with hand flapping, finger to nose, and [id number]. Negative pronator drift Laboratory Laboratory Tests Test 07/20/16 07/20/16 07/20/16 09:32 11:15 14:00 White Blood Count 11.4 13.5 Red Blood Count 4.94 4.28 Hemoglobin 14.2 12.0 Bedside Hemoglobin 15.3 Hematocrit 41.8 36.6 Bedside Hematocrit 45.0 Mean Corpuscular Volume 84.5 85.5 Mean Corpuscular Hemoglobin 28.8 28.0 Mean Corpuscular Hemoglobin 34.0 32.8 Concent Red Cell Distribution Width 15.2 15.3 Platelet Count 322 316 Mean Platelet Volume 7.9 7.7 Neutrophils (%) (Auto) 70.8 77.1 Lymphocytes (%) (Auto) 20.2 15.5 Monocytes (%) (Auto) 7.8 6.8 Eosinophils (%) (Auto) 0.6 0.3 Basophils (%) (Auto) 0.6 0.3 Neutrophils # (Auto) 8.0 10.4 Lymphocytes # (Auto) 2.3 2.1 Monocytes # (Auto) 0.9 0.9 Eosinophils # (Auto) 0.1 0.0 Basophils # (Auto) 0.1 0.0 CBC Comment DIFF FINAL DIFF FINAL Differential Comment Prothrombin Time 10.9 Prothromb Time International 1.0 Ratio Activated Partial 25.9 Thromboplast Time Fibrinogen 389 Bedside Sodium 127 Bedside Potassium 3.5 Bedside Chloride 90 Bedside Blood Urea Nitrogen 6 Bedside Creatinine 0.7 Bedside Glucose 137 Total Creatine Kinase 45 Troponin I LESS THAN 0.02 0.02 Human Chorionic Gonadotropin, LESS THAN 1 Quant Blood Type B POSITIVE Antibody Screen NEGATIVE Result Diagram: 07/20/16 1115 Imaging Last Impressions Head CT 07/20/16 0000 Signed Impressions: Service Date/Time: Wednesday, July 20, 2016 09:43 - CONCLUSION: No acute intracranial findings El Simon MD Assessment and Plan Assessment and Plan 76-year-old female presents after syncopal also with TIA. Problem List: (1) Pre-syncope Status: Acute Plan: TIA versus CVA versus cardiogenic Neurology consulted, appreciate recommendations - EKG: sinus rythm, left axis, no ST elevations or depressions noted, trend - Troponin negative 1, trend - Sodium 127, currently on IV fluids - MRI/MRA brain ordered - Echo ordered - Carotid ultrasound - Telemetry - orthostatic vitals when patient able to tolerate (2) TIA (transient ischemic attack) Status: Acute Plan: Patient acute onset of expressive aphasia while in route to the ER currently asymptomatic Workup above for presyncope Lipid profile A1c Start aspirin Allow permissive hypertension NIH stroke scale Consult PT (3) Scalp laceration Status: Acute Plan: Significant blood loss noted by ED Physician. Laceration currently repaired with nguyen. - Trend CBCs and transfuse if necessary (4) Hypertension Status: Chronic Plan: Hold home metoprolol, losartan - Allow permissive hypertension. (5) Asthma Status: Chronic Plan: Continue patient's albuterol when necessary and Pulmicort (6) Anxiety disorder Status: Chronic Plan: Hold lorazepam for now given patient's decreased level of alertness (7) Type 2 diabetes mellitus Status: Chronic Plan: Hold patient's metformin and Januvia -Low-dose sliding scale - A1c ordered (8) FEN Status: Acute Plan: Fluids: Status post 1 L bolus. Normal saline 70 cc per hour. Electrolytes: Sodium 127, repeat BMP at 3 PM Nutrition: Bedside swallow been diabetic diet DVT prophylaxis: Bilateral SCDs given significant bleeding from laceration Physician Certification 2 Midnight Certification Type: Admission for Inpatient Services Order for Inpatient Services The services are ordered in accordance with Medicare regulations or non- Medicare payer requirements, as applicable. In the case of services not specified as inpatient-only, they are appropriately provided as inpatient services in accordance with the 2-midnight benchmark. Estimated LOS (days): 2 2 days is the estimated time the patient will need to remain in the hospital, assuming treatment plan goals are met and no additional complications. Post-Hospital Plan: Not yet determined Problem Qualifiers (1) TIA (transient ischemic attack): Qualified Code: G45.9 - Transient cerebral ischemia, unspecified type (2) Scalp laceration: Qualified Code: S01.01XA - Scalp laceration, initial encounter Mario Eden MD July 20, 2016 16:51
[2016-07-20] MEDS ORDERED: BUDESONIDE 90 MCG INH SCH (21:00)
[2016-07-20] MEDS ORDERED: IBUPROFEN 400 MG TAB PO PRN (22:30)
[2016-07-20] MEDS ORDERED: ACETAMINOPHEN 325 MG TAB PO PRN (22:30)
[2016-07-20] MEDS: ATORVASTATIN 40 MG TAB PO SCH (22:40)
[2016-07-20] MEDS: ACETAMINOPHEN/HYDROcodone 325 MG/5 MG TAB PO PRN (23:21)
[2016-07-21] VITALS (29 sets, daily range): BP systolic 139–181; BP diastolic 66–100; PULSE 80–122; RESP 18–20; TEMP 98.2–98.4; O2SAT 96–97
[2016-07-21] MEDS: ONDANSETRON HCL 4 MG/2 ML VIAL IV PUSH PRN ×4 (04:09→18:26)
[2016-07-21] MEDS: ACETAMINOPHEN/HYDROcodone 325 MG/5 MG TAB PO PRN ×4 (04:09→18:30)
[2016-07-21 06:50] LABS: AUTOMATED NEUTROPHIL # 12.2 TH/MM3 (1.8-7.7); BASOPHIL % 0.2 % (0.0-2.0); HEMATOCRIT 31.6 % (35.0-46.0); LYMPH % 9.5 % (9.0-44.0); LYMPHOCYTE # 1.4 TH/MM3 (1.0-4.8); MEAN CELL VOLUME 84.4 FL (80.0-100.0); MEAN CORPUSCULAR HEMOGLOBIN 28.9 PG (27.0-34.0); MEAN CORPUSCULAR HGB CONC 34.3 % (32.0-36.0); MONO % 5.7 % (0.0-8.0); NEUT % 84.6 % (16.0-70.0); PLATELET COUNT 285 TH/MM3 (150-450); RED BLOOD COUNT 3.75 MIL/MM3 (4.00-5.30); RED CELL DISTRIBUTION WIDTH 15.1 % (11.6-17.2); WHITE BLOOD COUNT 14.4 TH/MM3 (4.0-11.0)
[2016-07-21 06:58] LABS: HEMO FLAGS AUTO DIFF
[2016-07-21] MEDS: INSULIN ASPART SUPPLEMENTAL SCALE SQ SCH ×4 (07:00→21:00)
--- NOTE | 2016-07-21 07:00 | HHI.FPPN ---
Subjective Remarks Patient seen and examined this am. No overnight events and the patient is afebrile. Patient states she had a hard time remembering things last night. The nurse states the patient was unable to stand for orthostatic vitals because she became dizzy. She did become nausea overnight and vomited. She is requesting breakfast. She denies CP or difficulty breathing. Is requesting a bed side commode, having a hard time urinating on bedpan. Objective Vitals Vital Signs Date Time Temp Pulse Resp B/P Pulse Ox O2 Delivery O2 Flow Rate FiO2 07/20/16 23:00 98.1 90 18 127/60 97 109/55 07/20/16 22:52 95 Nasal Cannula 2.00 07/20/16 19:45 98.0 80 16 123/50 97 111/51 07/20/16 16:00 80 20 101/58 07/20/16 14:35 Nasal Cannula 2 07/20/16 09:35 98 Nasal Cannula 2.00 07/20/16 09:33 74 18 190/91 98 07/20/16 09:32 73 18 98 Nasal Cannula 07/20/16 09:32 98 Nasal Cannula Result Diagram: 07/20/16 1115 Other Results GENERAL: This is a well-nourished, well-developed patient, very drowsy but arousable SKIN: blood in hair, apprx 2-3cm laceration on scalp occipital region, nguyen present, not actively bleeding HEAD:see above. EYES: Pupils equal round and reactive. Extraocular motions intact. No scleral icterus. No injection or drainage. ENT: Nose without bleeding, purulent drainage or septal hematoma. Throat without erythema, tonsillar hypertrophy or exudate. Uvula midline. Airway patent. NECK: Trachea midline. No JVD or lymphadenopathy. Supple, nontender, no meningeal signs. CARDIOVASCULAR: Regular rate and rhythm without murmurs, gallops, or rubs. RESPIRATORY: Clear to auscultation. Breath sounds equal bilaterally. No wheezes , rales, or rhonchi. GASTROINTESTINAL: Abdomen soft, non-tender, nondistended. No hepato-splenomegaly , or palpable masses. No guarding. MUSCULOSKELETAL: Extremities without clubbing, cyanosis, or edema. No joint tenderness, effusion, or edema noted. No calf tenderness. Negative Homans sign bilaterally. NEUROLOGICAL: Motor and sensory grossly within normal limits. Smile symmetric. Able to furrow eye brows. Alert & Orientated x 3. able to answer questions and follow directions appropriately. Strength LE +. Manganese Heater strength symmetric. Imaging Last Impressions Head Magnetic Resonance Angiography 07/20/16 Signed Impressions: Service Date/Time: Wednesday, July 20, 2016 12:58 - CONCLUSION: Normal examination. El Simon MD Head CT 07/20/16 Signed Impressions: Service Date/Time: Wednesday, July 20, 2016 09:43 - CONCLUSION: No acute intracranial findings El Simon MD Carotid Artery Ultrasound 07/20/16 Signed Impressions: Service Date/Time: Wednesday, July 20, 2016 12:05 - CONCLUSION: 1. Calcified plaque bilaterally with less than 50%% stenoses. 2. Antegrade flow involving both vertebral arteries. Kurt Mas Jr., MD Brain MRI 07/20/16 Signed Impressions: Service Date/Time: Wednesday, July 20, 2016 12:58 - CONCLUSION: 1. No acute intracranial abnormality. 2. Mild chronic small vessel ischemic change. Kurt Mas Jr., MD A/P Assessment and Plan 76-year-old female presents after syncopal also with TIA. Discharge Planning D/C pending further work up including ECHO Discussed with Drs. Espinoza and Zach Problem List: (1) Pre-syncope Status: Acute Plan: TIA versus CVA versus cardiogenic Neurology consulted, appreciate recommendations - EKG: sinus rythm, left axis, no ST elevations or depressions noted, trend - Troponin 0.02, .04, .06 - MRI/MRA brain normal - Echo ordered and pending - Carotid ultrasound: Calcified plaque bilaterally with less than 50% stenosis. Antegrade flow involving both vertebral arteries. - Telemetry - orthostatic vitals positive, although patient unable to stand at this time (2) TIA (transient ischemic attack) Status: Acute Plan: Patient acute onset of expressive aphasia while in route to the ER currently asymptomatic Workup above for presyncope Lipid profile A1c Allow permissive hypertension NIH stroke scale Consult PT Need to start aspirin Has been evaluated by neuro: Neuro checks every 4, MRI, telemetry, head CT, echo , orthostatic vitals, fall precautions, DVT prophylaxis (3) Scalp laceration Status: Acute Plan: Significant blood loss noted by ED Physician. Laceration currently repaired with nguyen. - Trend CBCs and transfuse if necessary (4) Hypertension Status: Chronic Plan: Hold home metoprolol, losartan - Allow permissive hypertension. (5) Asthma Status: Chronic Plan: Continue patient's albuterol when necessary and Pulmicort (6) Anxiety disorder Status: Chronic Plan: lorazepam for now given patient's decreased level of alertness (7) Type 2 diabetes mellitus Status: Chronic Plan: Hold patient's metformin and Januvia -Low-dose sliding scale - A1c ordered (8) FEN Status: Acute Plan: Fluids: Normal saline 70 cc per hour. Electrolytes: Sodium 127, repeat BMP at 3 PM Nutrition: Bedside swallow been diabetic diet DVT prophylaxis: start chemical DVT prophylaxis this evening Problem Qualifiers (1) TIA (transient ischemic attack): Qualified Code: G45.9 - Transient cerebral ischemia, unspecified type (2) Scalp laceration: Qualified Code: S01.01XA - Scalp laceration, initial encounter Thalia Hansen MD R3 July 21, 2016 07:00
[2016-07-21 07:22] LABS: HDL CHOLESTEROL 42.8 MG/DL (40.0-60.0); POTASSIUM 3.6 MEQ/L (3.5-5.1)
[2016-07-21 08:17] LABS: SCAN/DIFF AUTO DIFF CONFIRMED
[2016-07-21] MEDS: PANTOPRAZOLE SOD 40 MG DELAYED RELEASE TAB PO SCH (09:11)
--- NOTE | 2016-07-21 13:29 | EC ---
Study Study Date:07/21/2016 STUDY CONCLUSIONS SUMMARY - Procedure narrative: Image quality was fair. The study was technically limited due to poor acoustic window availability. - Left ventricle: The cavity size was normal. Systolic function was normal. The estimated ejection fraction was in the range of 60% to 65%. Although no diagnostic regional wall motion abnormality was identified, this possibility cannot be completely excluded on the basis of this study. Doppler parameters are consistent with abnormal left ventricular relaxation (grade 1 diastolic dysfunction). If LV function is below 40, please consider prescribing an ACEI or ARB or document rationale for non-use. PROCEDURE DATA STUDY STATUS: Elective. Procedure: Transthoracic echocardiography. Image quality was fair. The study was technically limited due to poor acoustic window availability. Scanning was performed from the parasternal, apical, and subcostal acoustic windows. Study completion: The patient tolerated the procedure well. Transthoracic echocardiography. M-mode, complete 2D, complete spectral Doppler, and color Doppler. Height: Height: 70in. Weight: Weight: 169.6lb. Body mass index: BMI: 24.4kg/m^2. Body surface area: BSA: 1.95m^2. Patient status: Inpatient. CARDIAC ANATOMY LEFT VENTRICLE: The cavity size was normal. Systolic function was normal. The estimated ejection fraction was in the range of 60% to 65%. Although no diagnostic regional wall motion abnormality was identified, this possibility cannot be completely excluded on the basis of this study. Doppler parameters are consistent with abnormal left ventricular relaxation (grade 1 diastolic dysfunction). AORTIC VALVE: The valve appears to be grossly normal. Doppler: There was no stenosis. No significant regurgitation. Valve area: 2.27cm^2(VTI). Indexed valve area: 1.16cm^2/m^2 (VTI). Valve area: 2.04cm^2 (Vmax). Indexed valve area: 1.05cm^2/m^2 (Vmax). Mean gradient: 5mm Hg (S). MITRAL VALVE: The valve appears to be grossly normal. Doppler: There was no evidence for stenosis. Trace regurgitation. RIGHT VENTRICLE: Not well visualized. PULMONIC VALVE: Not visualized. Doppler: There was no evidence for stenosis. Trace regurgitation. TRICUSPID VALVE: Not well visualized. Doppler: There was no evidence for stenosis. Trace to mild regurgitation. PERICARDIUM: There was no pericardial effusion. Patient weight: 169.6lb _Ejection fraction:_ 65-75% _Fractional shortening:_ 32% up to 5Kg 5-11.5Kg 11.6-22.9Kg 23-45Kg 45-57Kg Aortic Root 7-13 <17 13-22 17-27 17-27 LA diam 6-13 <23 24-38 33-47 37-40 RVID 10-17 7-15 7-15 7-18 8-17 LVIDd 12-22 <32 24-38 33-47 37-40 LVPW 2-4 3-6 5-7 6-8 7-8 IVS 2-4 3-6 5-7 6-8 7-8 BASIC MEASUREMENTS ADULT NORMAL Left ventricle LV internal dimension, ED, chordal 49.1 mm 43-52 level, PLAX LV internal dimension, ES, chordal 29 mm 23-38 level, PLAX Fractional shortening, chordal level, 41 % >29 PLAX LV posterior wall thickness, ED 8.54 mm IVS/LVPW ratio, ED 1.01 <1.3 Ventricular septum Septal thickness, ED 8.59 mm Aortic valve Leaflet separation 17 mm 15-26 Aorta Root diameter, ED 26 mm Left atrium Anterior-posterior dimension 26 mm Anterior-posterior dimension index 1.33 cm/m^2 <2.2 BASIC MEASUREMENTS ADULT NORMAL Aortic valve Leaflet separation 17 mm 15-26 DOPPLER MEASUREMENTS ADULT NORMAL Main pulmonary artery Pressure, S *36 mm Hg =30 Aortic valve Peak velocity, S 149 cm/s Mean velocity, S 96.7 cm/s VTI, S 24.4 cm Mean gradient, S 5 mm Hg Valve area, VTI 2.27 cm^2 Valve area index, VTI 1.16 cm^2/m^2 Valve area, Vmax 2.04 cm^2 Valve area index, Vmax 1.05 cm^2/m^2 Mitral valve Peak E-wave velocity 69.1 cm/s Peak A-wave velocity 105 cm/s Deceleration time *289 ms 150-230 Peak E/A ratio 0.7 Tricuspid valve Regurgitant peak velocity 266 cm/s Peak RV-RA gradient, S 28 mm Hg Systemic veins Estimated CVP 10 mm Hg Right ventricle RV pressure, S *38 mm Hg <30 Pulmonic valve Peak velocity, S 70.7 cm/s LEGEND: Mean values are shown as u=mean value. Asterisk (*) kirby values outside specified normal range. Prepared and signed by Cullen Nguyen [id number]
[2016-07-21 13:53] LABS: HEMOGLOBIN A1a 1.5 %; HEMOGLOBIN A1b 2.2 %; HEMOGLOBIN Ao 83.8 %; HEMOGLOBIN LA1C 2.1 %; HEMOGLOBIN P3 3.9 %
[2016-07-21 15:47] LABS: BLOOD, URINE NEG (NEG); GLUCOSE,URINE NEG (NEG); KETONE, URINE 10 mg/dL (NEG); MUCUS URINE FEW /lpf (OCC); NITRITE,URINE NEG (NEG); SQUAMOUS EPITHELIAL CELL URINE <1 /hpf (0-5); URINE COLOR LIGHT-YELLOW (YELLW/STRAW)
[2016-07-21 15:53] LABS: AMPHETAMINE, URINE NEG (NEG); BARBITURATES, URINE NEG (NEG); COCAINE, URINE NEG (NEG)
[2016-07-21] MEDS ORDERED: LORazepam 1 MG TAB PO PRN (16:00)
[2016-07-21] MEDS ORDERED: hydrALAZINE HCL 20 MG/ML VIAL IV PUSH PRN (16:00)
[2016-07-21] MEDS: cefTRIAXone INJ 1,000 MG in SODIUM CHLORIDE 0.9% INJ 100 ML IV SCH (16:49)
--- NOTE | 2016-07-21 20:55 | RADRPT ---
EXAM DATE/TIME: 07/21/2016 19:55 [facility] COMPARISON: No previous studies available for comparison. INDICATIONS : Shortness of breath, syncope. MEDICAL HISTORY : Hypertension. Arthritis. Diabetes mellitus type II. SURGICAL HISTORY : None. ENCOUNTER: Initial ACUITY: 2 days PAIN SCORE: 0/10 LOCATION: Bilateral chest FINDINGS: The heart size is normal. There is some mild increased density seen at the left base. The right lung is grossly clear. A significant effusion is not seen. The bony structures are grossly intact. CONCLUSION: Minimal suspected atelectasis or consolidation at the left base. El Menjivar MD on July 21, 2016 at 20:31 Board Certified Radiologist. This report was verified electronically.
[2016-07-21] MEDS: BUDESONIDE 90 MCG INH SCH (21:00)
[2016-07-21] MEDS: METOPROLOL TARTRATE 25 MG TAB PO SCH ×2 (21:00→21:16)
[2016-07-21] MEDS: HEPARIN SODIUM - SQ 10,000 UNITS/ML VIAL SQ SCH (21:12)
[2016-07-21] MEDS: ESZOPICLONE 3 MG TAB PO PRN (21:12)
[2016-07-21] MEDS: ATORVASTATIN 40 MG TAB PO SCH (21:12)
[2016-07-22] VITALS (26 sets, daily range): BP systolic 111–158; BP diastolic 55–79; PULSE 64–92; RESP 16–20; TEMP 97.6–98.6; O2SAT 95–98
[2016-07-22] MEDS: INSULIN ASPART SUPPLEMENTAL SCALE SQ SCH ×4 (06:01→21:00)
[2016-07-22 06:25] LABS: AUTOMATED NEUTROPHIL # 4.3 TH/MM3 (1.8-7.7); BASOPHIL % 0.4 % (0.0-2.0); EOSINOPHIL # 0.2 TH/MM3 (0-0.4); HEMATOCRIT 29.5 % (35.0-46.0); LYMPH % 32.6 % (9.0-44.0); LYMPHOCYTE # 2.6 TH/MM3 (1.0-4.8); MEAN CELL VOLUME 82.4 FL (80.0-100.0); MEAN CORPUSCULAR HEMOGLOBIN 29.3 PG (27.0-34.0); MEAN CORPUSCULAR HGB CONC 35.6 % (32.0-36.0); MONO % 9.9 % (0.0-8.0); NEUT % 55.1 % (16.0-70.0); PLATELET COUNT 282 TH/MM3 (150-450); RED BLOOD COUNT 3.58 MIL/MM3 (4.00-5.30); RED CELL DISTRIBUTION WIDTH 14.8 % (11.6-17.2); WHITE BLOOD COUNT 7.8 TH/MM3 (4.0-11.0)
[2016-07-22 06:29] LABS: HEMO FLAGS DIFF FINAL
[2016-07-22 06:55] LABS: ALT (GPT) 23 U/L (10-53); ANION GAP 11 MEQ/L (5-15); AST (GOT) 15 U/L (15-37); BLOOD UREA NITROGEN 7 MG/DL (7-18); CHLORIDE 82 MEQ/L (98-107); GLOMERULAR FILTRATION RATE 88 ML/MIN (>89); POTASSIUM 3.1 MEQ/L (3.5-5.1)
[2016-07-22 07:03] LABS: ALKALINE PHOSPHATASE 54 U/L (45-117); TOTAL BILIRUBIN ADULT 0.7 MG/DL (0.2-1.0)
[2016-07-22 07:05] LABS: SODIUM (NA) 123 MEQ/L (136-145)
[2016-07-22] MEDS: BUDESONIDE 90 MCG INH SCH ×2 (07:20→21:00)
[2016-07-22] MEDS: ONDANSETRON HCL 4 MG/2 ML VIAL IV PUSH PRN (07:47)
[2016-07-22] MEDS ORDERED: POTASSIUM CHLORIDE 10 MEQ CONTROLLED RELEASE TAB PO ONE (09:00)
[2016-07-22] MEDS ORDERED: POTASSIUM CHLOR 20 MEQ PREMIX 100 ML IV ONE (09:00)
[2016-07-22] MEDS: ACETAMINOPHEN/HYDROcodone 325 MG/5 MG TAB PO PRN ×2 (09:12→21:07)
[2016-07-22] MEDS: METOPROLOL TARTRATE 25 MG TAB PO SCH ×2 (09:14→21:08)
[2016-07-22] MEDS: LOSARTAN 50 MG TAB PO SCH (09:14)
[2016-07-22] MEDS: PANTOPRAZOLE SOD 40 MG DELAYED RELEASE TAB PO SCH (09:14)
[2016-07-22] MEDS: HEPARIN SODIUM - SQ 10,000 UNITS/ML VIAL SQ SCH ×2 (09:14→21:07)
[2016-07-22] MEDS: SALMETEROL XINAFOATE 50 MCG DISKUS INH SCH (09:15)
[2016-07-22] MEDS: SODIUM CHLOR 0.9% 1000 ML INJ 1,000 ML IV SCH ×2 (10:06→20:55)
--- NOTE | 2016-07-22 10:30 | HHI.FPPN ---
Subjective Remarks Patient seen and examined this am. Her vitals are stable and she is afebrile. at bedside. Patient states she feels better this am. Able to sit up in a chair without getting dizzy or light headed. adds to history that the patient has had issues with low sodium in the past. He reports when her sodium is low, she has difficulty with her speech (expressive aphasia) and a hard time with balance. This occurred a few years ago and the patient was brought to a hospital near by in [place], she was given IVF and her sx resolved. states sodium has been low in the past with PCP but has not been this low. They have attempted to restrict her free water at home. She currently denies CP or difficulty breathing. Objective Vitals Vital Signs Date Time Temp Pulse Resp B/P Pulse Ox O2 Delivery O2 Flow Rate FiO2 07/22/16 09:43 95 21 07/22/16 09:00 80 07/22/16 08:00 71 07/22/16 07:00 74 07/22/16 07:00 97.6 74 16 158/79 96 07/22/16 06:00 70 07/22/16 05:00 70 07/22/16 04:00 98.4 76 18 118/65 97 07/22/16 04:00 76 07/22/16 03:00 70 07/22/16 02:00 72 07/22/16 01:00 68 07/22/16 00:00 98.2 88 18 158/64 98 07/22/16 00:00 73 07/21/16 23:00 82 07/21/16 22:00 80 07/21/16 21:31 97 Nasal Cannula 2.00 07/21/16 21:00 86 07/21/16 20:00 86 07/21/16 20:00 98.4 91 20 174/75 97 148/68 07/21/16 19:30 20 07/21/16 19:00 84 07/21/16 18:00 86 07/21/16 17:00 84 07/21/16 16:00 82 07/21/16 15:14 98.4 94 18 139/68 96 140/70 07/21/16 15:00 90 07/21/16 14:20 180/98 07/21/16 14:15 181/100 07/21/16 14:00 90 07/21/16 13:00 88 07/21/16 12:00 84 07/21/16 11:22 98.4 94 18 139/68 96 140/70 07/21/16 11:17 2.00 07/21/16 11:00 92 I/O 07/21/16 07/21/16 07/21/16 07/22/16 07/22/16 07/22/16 07:00 15:00 23:00 07:00 15:00 23:00 Intake Total 240 ml 975 ml 240 ml Output Total 1700 ml 2600 ml Balance 240 ml -725 ml -2360 ml Intake Oral 240 ml 875 ml 240 ml IV Total 100 ml Output Urine Total 1700 ml 2600 ml # Bowel Movements 0 Result Diagram: 07/22/16 0600 07/22/16 0600 Imaging Last Impressions Chest X-Ray 07/21/16 0000 Signed Impressions: Service Date/Time: Thursday, July 21, 2016 19:55 - CONCLUSION: Minimal suspected atelectasis or consolidation at the left base. El Menjivar MD Head Magnetic Resonance Angiography 07/20/16 0000 Signed Impressions: Service Date/Time: Wednesday, July 20, 2016 12:58 - CONCLUSION: Normal examination. El Simon MD Head CT 07/20/16 0000 Signed Impressions: Service Date/Time: Wednesday, July 20, 2016 09:43 - CONCLUSION: No acute intracranial findings El Simon MD Carotid Artery Ultrasound 07/20/16 0000 Signed Impressions: Service Date/Time: Wednesday, July 20, 2016 12:05 - CONCLUSION: 1. Calcified plaque bilaterally with less than 50%% stenoses. 2. Antegrade flow involving both vertebral arteries. Kurt Mas Jr., MD Brain MRI 07/20/16 0000 Signed Impressions: Service Date/Time: Wednesday, July 20, 2016 12:58 - CONCLUSION: 1. No acute intracranial abnormality. 2. Mild chronic small vessel ischemic change. Kurt Mas Jr., MD Objective Remarks GENERAL: resting comfortably, nad. speech is appropriate. SKIN: Warm and dry. HEAD: Normocephalic. EYES: No scleral icterus. No injection or drainage. NECK: Supple, trachea midline. No JVD or lymphadenopathy. CARDIOVASCULAR: Regular rate and rhythm without murmurs, gallops, or rubs. RESPIRATORY: Breath sounds equal bilaterally. No accessory muscle use. GASTROINTESTINAL: Abdomen soft, non-tender, nondistended. MUSCULOSKELETAL: No cyanosis, or edema. BACK: Nontender without obvious deformity. A/P Assessment and Plan 76-year-old female presents after syncopal also with TIA. Discharge Planning D/C pending further work up and improved clinical status. Discussed with Drs. Espinoza and Zach Problem List: (1) Hyponatremia Status: Acute Plan: Hx of hyponatremia as an outpatient. Continues to decrease. Unclear etiology at this point, the patient is not on a diuretic. I have reviewed all her home medications, none of which have hypona listed as a SI. SIADH is the highest on the differential. Etiology: lung disease (patient has asthma and CXR concerning for PNA) or idiopathic. - Restrict free water < 1.5 L/day - resume NS @ 84 cc/hr - urine & plasma osmolality ordered - Tx the patients asthma & her PNA (2) Pre-syncope Status: Acute Plan: TIA versus CVA versus cardiogenic Neurology consulted: suspect cardiovascular etiology - EKG: sinus rythm, left axis, no ST elevations or depressions noted, trend - Troponin 0.02, .04, .06 - MRI/MRA brain normal - Echo reveals normal systolic fxn EF 60-65%, grade 1 diastolic dysfxn - Carotid ultrasound: Calcified plaque bilaterally with less than 50% stenosis. Antegrade flow involving both vertebral arteries. - Telemetry - orthostatic vitals positive, although patient unable to stand at this time. Will workup SIADH further, tx her PNA and UTI. If sx persist may consult cardiology while in hospital. Otherwise patients manager balance is Dr. Vann is aware of the patient and can follow up as an out patient. (3) TIA (transient ischemic attack) Status: Acute Plan: Patient acute onset of expressive aphasia while in route to the ER currently asymptomatic Workup above for presyncope Lipid profile wnl A1c 6 NIH stroke scale Consult PT: recommends SNF ASA 325 mg daily Has been evaluated by neuro: Neuro checks every 4, MRI, telemetry, head CT, echo , orthostatic vitals, fall precautions, DVT prophylaxis (4) Scalp laceration Status: Acute Plan: Significant blood loss noted by ED Physician. Laceration currently repaired with nguyen. - Trend CBCs and transfuse if necessary (5) PNA (pneumonia) Status: Acute Plan: See CXR above. - Rocephin 5/2 - Azithromcin 5/3 (6) Hypertension Status: Chronic Plan: Resume home metoprolol, losartan (7) Asthma Status: Chronic Plan: Continue patient's albuterol when necessary and Pulmicort (8) Anxiety disorder Status: Chronic Plan: lorazepam resumed (9) Type 2 diabetes mellitus Status: Chronic Plan: Hold patient's metformin and Januvia -Low-dose sliding scale - A1C is 6, may consider d/c Januvia. Can discuss with PCP. (10) FEN Status: Acute Plan: Fluids: Normal saline 70 cc per hour. Electrolytes: Sodium 123, repeat BMP at 3 PM. K 3.1, replete with PO and IV KCl Nutrition: regular diet DVT prophylaxis: heparin 5,000 units BID Problem Qualifiers (1) TIA (transient ischemic attack): Qualified Code: G45.9 - Transient cerebral ischemia, unspecified type (2) Scalp laceration: Qualified Code: S01.01XA - Scalp laceration, initial encounter Thalia Hansen MD R3 July 22, 2016 10:30
[2016-07-22] MEDS: AZITHROMYCIN 250 MG TAB PO SCH (11:48)
[2016-07-22] MEDS ORDERED: POLYETHYLENE GLYCOL 17 GM PKG PO PRN (15:45)
[2016-07-22 15:53] LABS: BICARBONATE 30.6 MEQ/L (21.0-32.0); POTASSIUM 3.8 MEQ/L (3.5-5.1)
[2016-07-22] MEDS: cefTRIAXone INJ 1,000 MG in SODIUM CHLORIDE 0.9% INJ 100 ML IV SCH (16:55)
[2016-07-22] MEDS: ATORVASTATIN 40 MG TAB PO SCH (21:08)
[2016-07-22] MEDS: ESZOPICLONE 3 MG TAB PO PRN (23:03)
[2016-07-23] VITALS (14 sets, daily range): BP systolic 127–158; BP diastolic 51–65; PULSE 58–66; RESP 20; TEMP 97.7–98.6; O2SAT 97–98
[2016-07-23 06:25] LABS: AUTOMATED NEUTROPHIL # 4.6 TH/MM3 (1.8-7.7); BASOPHIL # 0.1 TH/MM3 (0-0.2); BASOPHIL % 0.7 % (0.0-2.0); EOSINOPHIL # 0.2 TH/MM3 (0-0.4); EOSINOPHIL % 2.3 % (0.0-4.0); HEMATOCRIT 27.1 % (35.0-46.0); HEMO FLAGS DIFF FINAL; LYMPH % 27.8 % (9.0-44.0); LYMPHOCYTE # 2.2 TH/MM3 (1.0-4.8); MEAN CELL VOLUME 83.7 FL (80.0-100.0); MEAN CORPUSCULAR HEMOGLOBIN 29.5 PG (27.0-34.0); MEAN CORPUSCULAR HGB CONC 35.2 % (32.0-36.0); MONO % 11.2 % (0.0-8.0); PLATELET COUNT 246 TH/MM3 (150-450); RED BLOOD COUNT 3.23 MIL/MM3 (4.00-5.30); RED CELL DISTRIBUTION WIDTH 14.9 % (11.6-17.2)
[2016-07-23 06:44] LABS: BICARBONATE 27.4 MEQ/L (21.0-32.0); POTASSIUM 3.5 MEQ/L (3.5-5.1)
[2016-07-23] MEDS: INSULIN ASPART SUPPLEMENTAL SCALE SQ SCH ×2 (06:51→11:00)
--- NOTE | 2016-07-23 07:14 | HHI.FPPN ---
Subjective Remarks Patient seen and examined this am. Vitals are stable and afebrile. Patient with constipation overnight. She reports she feel a lot better. Able to sit up independently, plans for a shower today. Appetitie is good. She prefers to go home with home health and outpatient PT. Objective Vitals Vital Signs Date Time Temp Pulse Resp B/P Pulse Ox O2 Delivery O2 Flow Rate FiO2 07/23/16 06:00 62 07/23/16 05:00 65 07/23/16 04:00 65 07/23/16 03:00 98.2 66 20 127/51 97 07/23/16 03:00 61 07/23/16 02:00 66 07/23/16 01:00 64 07/23/16 00:00 62 07/22/16 23:00 98.2 68 20 152/60 96 07/22/16 23:00 65 07/22/16 22:21 18 07/22/16 22:00 74 07/22/16 21:00 86 07/22/16 20:00 76 07/22/16 20:00 98.6 76 20 111/69 96 07/22/16 19:00 68 07/22/16 18:12 85 07/22/16 17:54 97 21 07/22/16 17:10 92 07/22/16 16:14 67 07/22/16 15:00 98.2 73 18 137/55 97 07/22/16 15:00 67 07/22/16 14:00 65 07/22/16 13:00 64 07/22/16 12:00 66 07/22/16 11:00 98.5 67 16 130/65 98 07/22/16 11:00 67 07/22/16 10:00 66 07/22/16 09:43 95 21 07/22/16 09:00 80 07/22/16 08:00 71 I/O 07/22/16 07/22/16 07/22/16 07/23/16 07/23/16 07/23/16 07:00 15:00 23:00 07:00 15:00 23:00 Intake Total 240 ml 1278 ml 1283 ml Output Total 2600 ml 1500 ml 1300 ml Balance -2360 ml -222 ml -17 ml Intake Oral 240 ml 600 ml 440 ml IV Total 678 ml 843 ml Output Urine Total 2600 ml 1500 ml 1300 ml # Bowel Movements 0 Result Diagram: 07/23/16 0600 07/23/16 0600 Imaging Last Impressions Chest X-Ray 07/21/16 Signed Impressions: Service Date/Time: Thursday, July 21, 2016 19:55 - CONCLUSION: Minimal suspected atelectasis or consolidation at the left base. El Menjivar MD Head Magnetic Resonance Angiography 07/20/16 Signed Impressions: Service Date/Time: Wednesday, July 20, 2016 12:58 - CONCLUSION: Normal examination. El Simon MD Head CT 07/20/16 Signed Impressions: Service Date/Time: Wednesday, July 20, 2016 09:43 - CONCLUSION: No acute intracranial findings El Simon MD Carotid Artery Ultrasound 07/20/16 Signed Impressions: Service Date/Time: Wednesday, July 20, 2016 12:05 - CONCLUSION: 1. Calcified plaque bilaterally with less than 50%% stenoses. 2. Antegrade flow involving both vertebral arteries. Kurt Mas Jr., MD Brain MRI 07/20/16 Signed Impressions: Service Date/Time: Wednesday, July 20, 2016 12:58 - CONCLUSION: 1. No acute intracranial abnormality. 2. Mild chronic small vessel ischemic change. Kurt Mas Jr., MD Objective Remarks GENERAL: resting comfortably, nad. speech is appropriate. SKIN: Warm and dry. HEAD: Normocephalic. EYES: No scleral icterus. No injection or drainage. NECK: Supple, trachea midline. No JVD or lymphadenopathy. CARDIOVASCULAR: Regular rate and rhythm without murmurs, gallops, or rubs. RESPIRATORY: Breath sounds equal bilaterally. No accessory muscle use. GASTROINTESTINAL: Abdomen soft, non-tender, nondistended. MUSCULOSKELETAL: No cyanosis, or edema. BACK: Nontender without obvious deformity. A/P Assessment and Plan 76-year-old female presents after syncopal also with TIA. Discharge Planning D/C likely tomorrow either home with home health or SNF. Discussed with Dr. Espinoza Problem List: (1) Hyponatremia Status: Chronic Plan: Improved. S/P IVF Hx of hyponatremia as an outpatient. Continues to decrease. Unclear etiology at this point, the patient is not on a diuretic. I have reviewed all her home medications, none of which have hypona listed as a SI. SIADH is the highest on the differential. Etiology: lung disease (patient has asthma and CXR concerning for PNA) or idiopathic. - Restrict free water < 1.5 L/day - resume NS @ 84 cc/hr - urine & plasma osmolality ordered - Tx the patients asthma & her PNA (2) Pre-syncope Status: Acute Plan: TIA versus CVA versus cardiogenic Neurology consulted: suspect cardiovascular etiology - EKG: sinus rythm, left axis, no ST elevations or depressions noted, trend - Troponin 0.02, .04, .06 - MRI/MRA brain normal - Echo reveals normal systolic fxn EF 60-65%, grade 1 diastolic dysfxn - Carotid ultrasound: Calcified plaque bilaterally with less than 50% stenosis. Antegrade flow involving both vertebral arteries. - Telemetry - orthostatic vitals positive, although patient unable to stand at this time. Will workup SIADH further, tx her PNA and UTI. If sx persist may consult cardiology while in hospital. Otherwise patients professor criminal justice is Dr. Vann is aware of the patient and can follow up as an out patient. (3) TIA (transient ischemic attack) Status: Acute Plan: Patient acute onset of expressive aphasia while in route to the ER currently asymptomatic Workup above for presyncope, these neuro sx may be related to hyponatremia Lipid profile wnl A1c 6 NIH stroke scale Consult PT: recommends SNF ASA 325 mg daily Has been evaluated by neuro: Neuro checks every 4, MRI, telemetry, head CT, echo , orthostatic vitals, fall precautions, DVT prophylaxis (4) Scalp laceration Status: Acute Plan: Significant blood loss noted by ED Physician. Laceration currently repaired with nguyen. - Trend CBCs and transfuse if necessary (5) PNA (pneumonia) Status: Acute Plan: See CXR above. - Rocephin 5/2 - Azithromcin 5/3 (6) Hypertension Status: Chronic Plan: Resume home metoprolol, losartan (7) Asthma Status: Chronic Plan: Continue patient's albuterol when necessary and Pulmicort (8) Anxiety disorder Status: Chronic Plan: lorazepam resumed (9) Type 2 diabetes mellitus Status: Chronic Plan: Hold patient's metformin and Januvia -Low-dose sliding scale - A1C is 6, may consider d/c Januvia. Can discuss with PCP. (10) FEN Status: Acute Plan: Fluids: Normal saline 45 cc per hour. Electrolytes: currently wnl Nutrition: regular diet DVT prophylaxis: heparin 5,000 units BID Problem Qualifiers (1) TIA (transient ischemic attack): Qualified Code: G45.9 - Transient cerebral ischemia, unspecified type (2) Scalp laceration: Qualified Code: S01.01XA - Scalp laceration, initial encounter Thalia Hansen MD R3 July 23, 2016 07:14
[2016-07-23] MEDS: AZITHROMYCIN 250 MG TAB PO SCH (08:50)
[2016-07-23] MEDS: HEPARIN SODIUM - SQ 10,000 UNITS/ML VIAL SQ SCH (08:50)
[2016-07-23] MEDS: SALMETEROL XINAFOATE 50 MCG DISKUS INH SCH (08:51)
[2016-07-23] MEDS: LOSARTAN 50 MG TAB PO SCH (08:51)
[2016-07-23] MEDS: METOPROLOL TARTRATE 25 MG TAB PO SCH (08:51)
[2016-07-23] MEDS: PANTOPRAZOLE SOD 40 MG DELAYED RELEASE TAB PO SCH (08:51)
[2016-07-23] MEDS ORDERED: ASPIRIN 325 MG TAB PO SCH (09:00)
[2016-07-23] MEDS: BUDESONIDE 90 MCG INH SCH (09:00)
[2016-07-23] MEDS: ACETAMINOPHEN/HYDROcodone 325 MG/5 MG TAB PO PRN (09:03)
[2016-07-23] MEDS ORDERED: AZIT500T2 PO (16:41)
[2016-07-23] MEDS ORDERED: LOSA100T PO (17:06)
--- NOTE | 2016-07-24 11:45 | HHI.DS ---
Discharge Summary Admission Date July 20, 2016 at 11:21 Discharge Date: July 23, 2016 Admitting Diagnosis syncope, scalp hemorrhage, TIA (1) Hyponatremia Diagnosis: Principal Plan: Improved. S/P IVF Hx of hyponatremia as an outpatient. Continues to decrease. Unclear etiology at this point, the patient is not on a diuretic. I have reviewed all her home medications, none of which have hypona listed as a SI. SIADH is the highest on the differential. Etiology: lung disease (patient has asthma and CXR concerning for PNA) or idiopathic. - Restrict free water < 1.5 L/day - resume NS @ 84 cc/hr - urine & plasma osmolality ordered - Tx the patients asthma & her PNA (2) Pre-syncope Diagnosis: Principal Plan: TIA versus CVA versus cardiogenic Neurology consulted: suspect cardiovascular etiology - EKG: sinus rythm, left axis, no ST elevations or depressions noted, trend - Troponin 0.02, .04, .06 - MRI/MRA brain normal - Echo reveals normal systolic fxn EF 60-65%, grade 1 diastolic dysfxn - Carotid ultrasound: Calcified plaque bilaterally with less than 50% stenosis. Antegrade flow involving both vertebral arteries. - Telemetry - orthostatic vitals positive, although patient unable to stand at this time. Will workup SIADH further, tx her PNA and UTI. If sx persist may consult cardiology while in hospital. 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 Vann is aware of the patient and can follow up as an out patient. (3) TIA (transient ischemic attack) Diagnosis: Principal Plan: Patient acute onset of expressive aphasia while in route to the ER currently asymptomatic Workup above for presyncope, these neuro sx may be related to hyponatremia Lipid profile wnl A1c 6 NIH stroke scale Consult PT: recommends SNF ASA 325 mg daily Has been evaluated by neuro: Neuro checks every 4, MRI, telemetry, head CT, echo , orthostatic vitals, fall precautions, DVT prophylaxis (4) Scalp laceration Diagnosis: Principal Plan: Significant blood loss noted by ED Physician. Laceration currently repaired with nguyen. - Trend CBCs and transfuse if necessary (5) PNA (pneumonia) Diagnosis: Secondary Plan: See CXR above. - Rocephin 5/2 - Azithromcin 5/3 (6) Hypertension Plan: Resume home metoprolol, losartan (7) Asthma Plan: Continue patient's albuterol when necessary and Pulmicort (8) Anxiety disorder Plan: lorazepam resumed (9) Type 2 diabetes mellitus Plan: Hold patient's metformin and Januvia -Low-dose sliding scale - A1C is 6, may consider d/c Januvia. Can discuss with PCP. (10) FEN Plan: Fluids: Normal saline 45 cc per hour. Electrolytes: currently wnl Nutrition: regular diet DVT prophylaxis: heparin 5,000 units BID Brief History 76-year-old female presenting to the emergency department after a fall at home, hitting her head and causing a laceration requiring nguyen. She states that she woke up this morning and stood up to begin walking and she felt dizzy/ lightheaded with the room spinning and fell backwards. She struck the posterior aspect of her head on the door frame and sustained a laceration with significant amount of bleeding. She denies losing consciousness and does remember the entire incident. She denies any seizure type activity such as bowel/bladder incontinence or tongue biting. She denies any chest pain or palpitations. She managed to call [facility] and was transported to the hospital. Apparently, during the ride to the hospital she became somewhat disoriented and had expressive aphasia in the paramedics called for stroke alert. The onset of this was sudden and lasted for only a couple of minutes. By the time she presented to the emergency department, she was speaking coherently and was completely back to her baseline without aphasia or other neurologic symptoms. She does endorse a 2 week history of falls that are similar in nature. Stating that usually during a positional change, she will become dizzy and lightheaded causing her to fall. She has not hit her head prior to this incident she says that she is able to get up and sit in a chair for a few hours and will feel normal again. She has not been evaluated for these symptoms. CBC/BMP: 07/23/16 0600 07/23/16 0600 Significant Findings Laboratory Tests Test 07/21/16 07/22/16 07/22/16 07/22/16 14:50 06:00 12:00 14:14 Urine Ketones 10 mg/dL (NEG) Urine Leukocyte Esterase MOD (NEG) Urine RBC 5 /hpf (0-3) Urine WBC 12 /hpf (0-5) Urine Mucus FEW /lpf (OCC) Red Blood Count 3.58 MIL/MM3 (4.00-5.30) Hemoglobin 10.5 GM/DL (11.6-15.3) Hematocrit 29.5 % (35.0-46.0) Monocytes (%) (Auto) 9.9 % (0.0-8.0) Sodium Level 123 MEQ/L 122 MEQ/L (136-145) (136-145) Potassium Level 3.1 MEQ/L (3.5-5.1) Chloride Level 82 MEQ/L 83 MEQ/L (98-107) (98-107) Estimat Glomerular Filtration 88 ML/MIN (>89) 68 ML/MIN (>89) Rate Random Glucose 114 MG/DL 126 MG/DL (74-106) (74-106) Serum Osmolality 258 MOSM/KG (275-295) Urine Osmolality 79 MOSM/KG (300-1300) Test 07/23/16 06:00 Red Blood Count 3.23 MIL/MM3 (4.00-5.30) Hemoglobin 9.5 GM/DL (11.6-15.3) Hematocrit 27.1 % (35.0-46.0) Monocytes (%) (Auto) 11.2 % (0.0-8.0) Sodium Level 130 MEQ/L (136-145) Chloride Level 93 MEQ/L (98-107) Estimat Glomerular Filtration 88 ML/MIN (>89) Rate Random Glucose 125 MG/DL (74-106) Imaging Last Impressions Chest X-Ray 07/21/16 Signed Impressions: Service Date/Time: Thursday, July 21, 2016 19:55 - CONCLUSION: Minimal suspected atelectasis or consolidation at the left base. El Menjivar MD Head Magnetic Resonance Angiography 07/20/16 Signed Impressions: Service Date/Time: Wednesday, July 20, 2016 12:58 - CONCLUSION: Normal examination. El Simon MD Head CT 07/20/16 Signed Impressions: Service Date/Time: Wednesday, July 20, 2016 09:43 - CONCLUSION: No acute intracranial findings El Simon MD Carotid Artery Ultrasound 07/20/16 Signed Impressions: Service Date/Time: Wednesday, July 20, 2016 12:05 - CONCLUSION: 1. Calcified plaque bilaterally with less than 50%% stenoses. 2. Antegrade flow involving both vertebral arteries. Kurt Mas Jr., MD Brain MRI 07/20/16 0000 Signed Impressions: Service Date/Time: Wednesday, July 20, 2016 12:58 - CONCLUSION: 1. No acute intracranial abnormality. 2. Mild chronic small vessel ischemic change. Kurt Mas Jr., MD PE at Discharge GENERAL: resting comfortably, nad. speech is appropriate. SKIN: Warm and dry. HEAD: Normocephalic. EYES: No scleral icterus. No injection or drainage. NECK: Supple, trachea midline. No JVD or lymphadenopathy. CARDIOVASCULAR: Regular rate and rhythm without murmurs, gallops, or rubs. RESPIRATORY: Breath sounds equal bilaterally. No accessory muscle use. GASTROINTESTINAL: Abdomen soft, non-tender, nondistended. MUSCULOSKELETAL: No cyanosis, or edema. BACK: Nontender without obvious deformity. Hospital Course The patient presented to the ER after syncopal event at home. She sustained a head laceration that was closed with nguyen in the ER. Patient was found to be hyponatremic, have a UTI, and PNA. These conditions were treated as above. Patient experience expressive aphasia, concern was for TIA. It is unclear if the sx were related to a TIA vs. electrolytes abnormality. The patient did well , her electrolyte abnormalities resolved and she clinically improved. She was discharged home with home health. Pt Condition on Discharge: Stable Discharge Disposition: Disch w/ Home Health Serv Discharge Instructions DIET: Follow Instructions for: Heart Healthy Diet Activities you can perform: Weight Bearing as Thalia Tabor MD R3 July 24, 2016 11:45
[2016-08-24] MEDS ORDERED: AMLO10 PO ×2 (09:39→10:28)
[2016-08-24] MEDS ORDERED: TELM1TAB PO (09:39)
[2016-08-25] MEDS ORDERED: ESZO1TAB4 PO (08:00)
[2016-08-25] MEDS ORDERED: SITA1TAB2 PO (08:00)
[2016-08-28] MEDS ORDERED: ALBU6.7H INH (12:55)
[2016-09-04] MEDS ORDERED: VALS1TAB64 PO (14:22)
[2016-09-04] MEDS ORDERED: DOXY100C PO (14:36)
[2016-09-21] MEDS ORDERED: SALM50I INH (16:26)
== END 2016-07-23 16:24 | disposition home or self-care (01) | DRG 640 ==
LOC: NEPC 09:30 → NEDA 11:21 → NEDH 15:24 → HCIS 19:36
PROVIDERS: ADMIT Family Medicine; ATTEND Family Medicine
PROC: 0HQ0XZZ Repair Scalp Skin, External Approach (ICD-10-PCS; principal; 2016-07-20)
DX: E87.1 Hypo-osmolality and hyponatremia (principal); J18.9 Pneumonia, unspecified organism; G45.9 Transient cerebral ischemic attack, unspecified; R47.01 Aphasia; K31.84 Gastroparesis; I10 Essential (primary) hypertension; S01.01XA Laceration without foreign body of scalp, initial encounter; J45.909 Unspecified asthma, uncomplicated; R55 Syncope and collapse; E11.9 Type 2 diabetes mellitus without complications; F41.9 Anxiety disorder, unspecified; W01.0XXA Fall on same level from slipping, tripping and stumbling without subsequent striking against object, initial encounter; Z85.828 Personal history of other malignant neoplasm of skin; Z79.84 Long term (current) use of oral hypoglycemic drugs; Z79.82 Long term (current) use of aspirin; K21.9 Gastro-esophageal reflux disease without esophagitis; Z86.73 Personal history of transient ischemic attack (TIA), and cerebral infarction without residual deficits; Z82.3 Family history of stroke; E78.5 Hyperlipidemia, unspecified; K59.00 Constipation, unspecified
CPT/HCPCS: 70450; 70544; 70551; 71020; 76937; 80048; 80053; 80061; 80307; 81001; 82435; 82550; 82565; 82947; 82948; 83036; 83735; 83930; 83935; 84132; 84295; 84484; 84520; 84702; 85025; 85384; 85610; 85730; 86850; 86900; 86901; 93005; 93306; 93880; 96360; J0696; J1644; J1815; J2270; J2405; J3480; J7030

== ENCOUNTER → 2016-08-14 | Outpatient (CLI) | payer MEDICARE, BC ==
[~2016-08-14] MED LIST changes: +AMLO10 PO; +AZIT500T2 PO; +DOXY100C PO; -ESZO1TAB3 PO; +ESZO1TAB4 PO; +ESZO3TAB4 PO; -HYDR2.5C TOPICAL; +TELM1TAB PO; -Test Strips; +VALS1TAB64 PO
[2016-08-14 07:55] LABS: ALKALINE PHOSPHATASE 62 U/L (45-117); ALT (GPT) 23 U/L (10-53); ANION GAP 10 MEQ/L (5-15); AST (GOT) 20 U/L (15-37); BICARBONATE 24.4 MEQ/L (21.0-32.0); BLOOD UREA NITROGEN 11 MG/DL (7-18); CHLORIDE 105 MEQ/L (98-107); GLOMERULAR FILTRATION RATE 86 ML/MIN (>89); GLUCOSE,FASTING 102 MG/DL (74-99); HDL CHOLESTEROL 54.9 MG/DL (40.0-60.0); LDL CHOLESTEROL 71 MG/DL (0-99); SODIUM (NA) 139 MEQ/L (136-145); TOTAL BILIRUBIN ADULT 0.4 MG/DL (0.2-1.0)
[2016-08-14 08:06] LABS: AUTOMATED NEUTROPHIL # 3.5 TH/MM3 (1.8-7.7); BASOPHIL # 0.1 TH/MM3 (0-0.2); BASOPHIL % 1.1 % (0.0-2.0); EOSINOPHIL # 0.3 TH/MM3 (0-0.4); EOSINOPHIL % 4.1 % (0.0-4.0); HEMATOCRIT 29.2 % (35.0-46.0); HEMO FLAGS DIFF FINAL; LYMPH % 29.8 % (9.0-44.0); LYMPHOCYTE # 1.8 TH/MM3 (1.0-4.8); MEAN CELL VOLUME 84.5 FL (80.0-100.0); MEAN CORPUSCULAR HEMOGLOBIN 27.6 PG (27.0-34.0); MEAN CORPUSCULAR HGB CONC 32.6 % (32.0-36.0); MONO % 8.8 % (0.0-8.0); NEUT % 56.2 % (16.0-70.0); PLATELET COUNT 341 TH/MM3 (150-450); RED BLOOD COUNT 3.45 MIL/MM3 (4.00-5.30); RED CELL DISTRIBUTION WIDTH 15.1 % (11.6-17.2); WHITE BLOOD COUNT 6.1 TH/MM3 (4.0-11.0)
[2016-08-14 11:35] LABS: HEMOGLOBIN A1a 1.1 %; HEMOGLOBIN Ao 85.2 %; HEMOGLOBIN LA1C 1.9 %; HEMOGLOBIN P3 3.5 %
== END ==
LOC: CLAB 06:51
PROVIDERS: ATTEND Psychiatry & Neurology Neurology
DX: E11.9 Type 2 diabetes mellitus without complications (principal); D64.9 Anemia, unspecified; E87.1 Hypo-osmolality and hyponatremia; R51 Headache; E53.8 Deficiency of other specified B group vitamins
CPT/HCPCS: 36415; 80053; 80061; 82607; 82746; 83036; 85025

== ENCOUNTER → 2016-10-26 | Outpatient (CLI) | payer MEDICARE, BC ==
[~2016-10-26] MED LIST changes: -AZIT500T2 PO; +ESZO1TAB PO; -ESZO3TAB4 PO; -LOSA100T PO; -METO25TA3 PO; -OMEP40CA2 PO; +PULM180I INH; -PULM90IN INH; -TELM1TAB PO
[2016-10-26 09:24] LABS: AUTOMATED NEUTROPHIL # 3.5 TH/MM3 (1.8-7.7); BASOPHIL # 0.1 TH/MM3 (0-0.2); BASOPHIL % 1.2 % (0.0-2.0); EOSINOPHIL # 0.2 TH/MM3 (0-0.4); EOSINOPHIL % 3.7 % (0.0-4.0); HEMATOCRIT 33.3 % (35.0-46.0); HEMO FLAGS DIFF FINAL; LYMPH % 26.3 % (9.0-44.0); LYMPHOCYTE # 1.6 TH/MM3 (1.0-4.8); MEAN CELL VOLUME 80.3 FL (80.0-100.0); MEAN CORPUSCULAR HEMOGLOBIN 26.2 PG (27.0-34.0); MEAN CORPUSCULAR HGB CONC 32.6 % (32.0-36.0); MONO % 10.5 % (0.0-8.0); NEUT % 58.3 % (16.0-70.0); PLATELET COUNT 329 TH/MM3 (150-450); RED BLOOD COUNT 4.14 MIL/MM3 (4.00-5.30); RED CELL DISTRIBUTION WIDTH 17.3 % (11.6-17.2); WHITE BLOOD COUNT 6.1 TH/MM3 (4.0-11.0)
[2016-10-26 10:04] LABS: ANION GAP 10 MEQ/L (5-15); AST (GOT) 24 U/L (15-37); BICARBONATE 25.5 MEQ/L (21.0-32.0); BLOOD UREA NITROGEN 13 MG/DL (7-18); CHLORIDE 99 MEQ/L (98-107); GLOMERULAR FILTRATION RATE 76 ML/MIN (>89); GLUCOSE,FASTING 105 MG/DL (74-99); POTASSIUM 4.2 MEQ/L (3.5-5.1); SODIUM (NA) 134 MEQ/L (136-145)
[2016-10-26 10:05] LABS: ALT (GPT) 22 U/L (10-53)
[2016-10-26 10:11] LABS: ALKALINE PHOSPHATASE 69 U/L (45-117); HDL CHOLESTEROL 61.1 MG/DL (40.0-60.0); LDL CHOLESTEROL 71 MG/DL (0-99); TOTAL BILIRUBIN ADULT 0.3 MG/DL (0.2-1.0)
== END ==
LOC: CLAB 08:48
PROVIDERS: ATTEND Family Medicine
DX: E78.00 Pure hypercholesterolemia, unspecified (principal); D64.9 Anemia, unspecified
CPT/HCPCS: 36415; 80053; 80061; 85025

== ENCOUNTER → 2016-11-04 | Outpatient (CLI) | payer MEDICARE, BC ==
[~2016-11-04] MED LIST changes: +LOSA100T PO; +LYRI75CA PO; +METO25TA6 PO
[2016-11-04 11:30] LABS: HEMATOCRIT 33.1 % (35.0-46.0); MEAN CELL VOLUME 80.3 FL (80.0-100.0); MEAN CORPUSCULAR HEMOGLOBIN 26.7 PG (27.0-34.0); MEAN CORPUSCULAR HGB CONC 33.2 % (32.0-36.0); PLATELET COUNT 290 TH/MM3 (150-450); RED BLOOD COUNT 4.12 MIL/MM3 (4.00-5.30); RED CELL DISTRIBUTION WIDTH 17.4 % (11.6-17.2); REVIEW FLAG FINAL; WHITE BLOOD COUNT 7.2 TH/MM3 (4.0-11.0)
[2016-11-04 12:13] LABS: WESTERGREN SEDIMENTATION RATE 32 mm/hr (0-30)
== END ==
LOC: CLAB 10:51
DX: T84.398A Other mechanical complication of other bone devices, implants and grafts, initial encounter (principal); Y83.9 Surgical procedure, unspecified as the cause of abnormal reaction of the patient, or of later complication, without mention of misadventure at the time of the procedure
CPT/HCPCS: 36415; 85027; 85652; 86140

== ENCOUNTER → 2016-12-15 | Outpatient (CLI) | payer SELFPAY | LOC: CLAB 10:49 | DX: Z91.09 Other allergy status, other than to drugs and biological substances (principal) | CPT/HCPCS: 36415 ==

== ENCOUNTER 2016-12-31 14:47 | Observation (INO) | payer MEDICARE, BC ==
[~2016-12-31] VITALS: Ht 177.8 cm; Wt 84.0 kg
[~2016-12-31 14:47] MED LIST changes: -LYRI75CA PO
[2016-12-31 14:49] VITALS: BP 176/74; PULSE 83; RESP 18; TEMP 98.4; O2SAT 96
--- NOTE | 2016-12-31 14:54 | PD ---
Physical Exam Time Seen by Provider: 14:52 Narrative 76-year-old female, sent by Dr. Hernández, with complaint of heart palpitations, shortness of breath, presyncope, dizziness and chest pain to mid chest 3 weeks with worsening. Denies anticoagulant therapy. Patient seen in triage. Vital signs reviewed. Patient awaiting bed placement. Data Data Last Documented VS Vital Signs Date Time Temp Pulse Resp B/P (MAP) Pulse Ox O2 Delivery O2 Flow Rate FiO2 12/31/16 14:49 98.4 83 18 176/74 (108) 96 Room Air Orders Orders Electrocardiogram (12/31/16 14:54) Basic Metabolic Panel (Bmp) (12/31/16 14:54) Ckmb (Isoenzyme) Profile (12/31/16 14:54) Complete Blood Count With Diff (12/31/16 14:54) Magnesium (Mg) (12/31/16 14:54) Prothrombin Time / Inr (Pt) (12/31/16 14:54) Act Partial Throm Time (Ptt) (12/31/16 14:54) Troponin I (12/31/16 14:54) Chest, Single Ap (12/31/16 14:54) Ecg Monitoring (12/31/16 14:54) Iv Access Insert/Monitor (12/31/16 14:54) Oximetry (12/31/16 14:54) Oxygen Administration (12/31/16 14:54) Sodium Chloride 0.9% Flush (Ns Flush) (12/31/16 15:00) [facility] Supervised Visit with ELIANA: Tess Spence Dec 31, 2016 14:54
[2016-12-31] MEDS ORDERED: SODIUM CHLORIDE 0.9% FLUSH 10 ML FLUSH IVF PRN (15:00)
--- NOTE | 2016-12-31 15:38 | RADRPT ---
EXAM DATE/TIME: 12/31/2016 15:32 [facility] COMPARISON: CHEST PA & LAT, July 21, 2016, 19:55. INDICATIONS : Chest pains. MEDICAL HISTORY : Hypertension. Diabetes mellitus type II. Asthma. SURGICAL HISTORY : None. ENCOUNTER: Initial ACUITY: 3 weeks PAIN SCORE: 5/10 LOCATION: Bilateral chest FINDINGS: A single view of the chest demonstrates the lungs to be symmetrically aerated without evidence of mas s, infiltrate or effusion. Minimal scarring within the left lung base is stable. The cardiomediastin al contours are unremarkable. Osseous structures are intact. CONCLUSION: No acute disease. Kurt Mas Jr., MD on December 31, 2016 at 15:36 Board Certified Radiologist. This report was verified electronically.
[2016-12-31] MEDS ORDERED: ASPIRIN 81 MG CHEW TAB CHEW ONE (15:45)
[2016-12-31] MEDS ORDERED: LOSA100T PO (15:55)
[2016-12-31 16:04] LABS: AUTOMATED NEUTROPHIL # 5.8 TH/MM3 (1.8-7.7); BASOPHIL % 0.5 % (0.0-2.0); EOSINOPHIL # 0.1 TH/MM3 (0-0.4); EOSINOPHIL % 1.1 % (0.0-4.0); HEMATOCRIT 37.9 % (35.0-46.0); HEMO FLAGS DIFF FINAL; LYMPH % 22.9 % (9.0-44.0); MEAN CELL VOLUME 81.5 FL (80.0-100.0); MEAN CORPUSCULAR HEMOGLOBIN 28.1 PG (27.0-34.0); MEAN CORPUSCULAR HGB CONC 34.4 % (32.0-36.0); MONO % 8.3 % (0.0-8.0); NEUT % 67.2 % (16.0-70.0); PLATELET COUNT 244 TH/MM3 (150-450); RED BLOOD COUNT 4.65 MIL/MM3 (4.00-5.30); RED CELL DISTRIBUTION WIDTH 18.4 % (11.6-17.2); WHITE BLOOD COUNT 8.6 TH/MM3 (4.0-11.0)
[2016-12-31] MEDS ORDERED: NITROGLYCERIN 0.4 MG SL 25 TABS/BTL SL ONE ×3 (16:07→16:30)
[2016-12-31 16:13] LABS: APTT (PATIENT) 25.9 SEC (24.3-30.1); PROTHROMBIN TIME - PATIENT 10.7 SEC (9.8-11.6)
[2016-12-31 16:30] LABS: ANION GAP 7 MEQ/L (5-15); BICARBONATE 25.3 MEQ/L (21.0-32.0); BLOOD UREA NITROGEN 12 MG/DL (7-18); CHLORIDE 103 MEQ/L (98-107); GLOMERULAR FILTRATION RATE 80 ML/MIN (>89); MAGNESIUM 1.9 MG/DL (1.5-2.5); POTASSIUM 3.6 MEQ/L (3.5-5.1); SODIUM (NA) 135 MEQ/L (136-145)
[2016-12-31 16:53] LABS: CREATINE KINASE 47 U/L (26-192)
--- NOTE | 2016-12-31 17:21 | PD ---
HPI Chief Complaint: Chest Pain Time Seen by Provider: 15:16 Travel History International Travel<30 days: No Contact w/Intl Traveler<30days: No Traveled to known affect area: No History of Present Illness HPI 76-year-old female was sent to the emergency room by her primary care for one week history of chest pain, shortness of breath upon exertion. The pain is substernal and patient describes it as pressure sensation. Pain does not radiate anywhere else. The shortness of breath is also worsened upon exertion. Patient had a stress test 13 years ago. No history of stent or bypass surgery. She used to be a smoker but quit 20 years ago. Patient has history of hypertension. No history of recent long distance travel, procedures or previous DVT or PEs. Vital signs were stable. No history of nausea or vomiting. No history of diaphoresis. Currently her chest pressure is 7 out of 10. PFSH Past Medical History Narrative Medical List of her past medical, surgical, social and family history is reviewed from the nursing note. Arthritis: Yes Asthma: Yes Autoimmune Disease: No Anxiety: Yes (lorazepam) Depression: No Cancer: No Cardiovascular Problems: No Chemotherapy: No Diabetes: Yes (metformin) Patient Takes Glucophage: Yes Endocrine: Yes Gastrointestinal Disorders: Yes (REFLUX) Genitourinary: No Hepatitis: No Hiatal Hernia: Yes Hypertension: Yes Immune Disorder: No Musculoskeletal: Yes (LUMBAR/SACRAL SX) Neurologic: No Psychiatric: No Reproductive: No Respiratory: Yes (ASTHMA) Immunizations Current: Yes Radiation Therapy: No Thyroid Disease: No Past Surgical History Abdominal Surgery: No AICD: No Cardiac Surgery: No Ear Surgery: No Endocrine Surgery: No Eye Surgery: Yes Genitourinary Surgery: No Gynecologic Surgery: No Joint Replacement: Yes Oral Surgery: No Pacemaker: No Thoracic Surgery: No Tonsillectomy: Yes (T&A) Other Surgery: Yes Social History Alcohol Use: No Tobacco Use: No Substance Use: No Allergies-Medications (Allergen,Severity, Reaction): Coded Allergies: nickel (Verified Allergy, Unknown, 01/01/17) Comments No known drug allergies. Reported Meds & Prescriptions Reported Meds & Active Scripts Active Pulmicort Flexhaler (Budesonide Powder Inh) 180 Mcg/Act Inhp 180 Mcg INH Q12HR Lunesta (Eszopiclone) 2 Mg Tab 3 Mg PO HS PRN Serevent Diskus Inh (Salmeterol Xinafoate) 50 Mcg/Act Aero 2 Inhaler INH DAILY Lorazepam 1 Mg Tab 1 Mg PO BID PRN Proventil Hfa 6.7 GM Inh (Albuterol Sulfate) 90 Mcg/Act Aer 2 Puff INH Q4H PRN Norvasc (Amlodipine Besylate) 10 Mg Tab 10 Mg PO DAILY Metformin ER (Metformin HCl) 1,000 Mg Zohreh 2,000 Mg PO HS With evening meal Atorvastatin (Atorvastatin Calcium) 40 Mg Tab 40 Mg PO HS Reported Losartan (Losartan Potassium) 100 Mg Tab 100 Mg PO DAILY Januvia (Sitagliptin Phosphate) 100 Mg Tab 100 Mg PO DAILY Narrative Medication List of her home medications reviewed from the nursing note. Review of Systems Except as stated in HPI: all other systems reviewed are Neg Cardiovascular: Positive: Chest Pain or Discomfort, Dyspnea on exertion Physical Exam Narrative GENERAL: Awake, alert, mild distress SKIN: Focused skin assessment warm/dry. HEAD: Atraumatic. Normocephalic. EYES: Pupils equal and round. No scleral icterus. No injection or drainage. ENT: No nasal bleeding or discharge. Mucous membranes pink and moist. NECK: Trachea midline. No JVD. CARDIOVASCULAR: Regular rate and rhythm. No murmur appreciated. RESPIRATORY: No accessory muscle use. Clear to auscultation. Breath sounds equal bilaterally. GASTROINTESTINAL: Abdomen soft, non-tender, nondistended. Hepatic and splenic margins not palpable. MUSCULOSKELETAL: No obvious deformities. No clubbing. No cyanosis. No edema. NEUROLOGICAL: Awake and alert. No obvious cranial nerve deficits. Motor grossly within normal limits. Normal speech. PSYCHIATRIC: Appropriate mood and affect; insight and judgment normal. Data Data Last Documented VS Vital Signs Date Time Temp Pulse Resp B/P (MAP) Pulse Ox O2 Delivery O2 Flow Rate FiO2 12/31/16 14:49 98.4 83 18 176/74 (108) 96 Room Air Orders Orders Electrocardiogram (12/31/16 14:54) Basic Metabolic Panel (Bmp) (12/31/16 14:54) Ckmb (Isoenzyme) Profile (12/31/16 14:54) Complete Blood Count With Diff (12/31/16 14:54) Magnesium (Mg) (12/31/16 14:54) Prothrombin Time / Inr (Pt) (12/31/16 14:54) Act Partial Throm Time (Ptt) (12/31/16 14:54) Troponin I (12/31/16 14:54) Chest, Single Ap (12/31/16 14:54) Ecg Monitoring (12/31/16 14:54) Iv Access Insert/Monitor (12/31/16 14:54) Oximetry (12/31/16 14:54) Oxygen Administration (12/31/16 14:54) Sodium Chloride 0.9% Flush (Ns Flush) (12/31/16 15:00) Aspirin Chew (Aspirin Chew) (12/31/16 15:45) Nitroglycerin Sl (Nitrostat Sl) (12/31/16 16:07) Nitroglycerin Sl (Nitrostat Sl) (12/31/16 16:08) Nitroglycerin Sl (Nitrostat Sl) (12/31/16 16:30) Admit Order (Ed Use Only) (12/31/16 17:44) Labs Laboratory Tests Test 12/31/16 15:45 White Blood Count 8.6 TH/MM3 Red Blood Count 4.65 MIL/MM3 Hemoglobin 13.1 GM/DL Hematocrit 37.9 % Mean Corpuscular Volume 81.5 FL Mean Corpuscular Hemoglobin 28.1 PG Mean Corpuscular Hemoglobin Concent 34.4 % Red Cell Distribution Width 18.4 % Platelet Count 244 TH/MM3 Mean Platelet Volume 8.8 FL Neutrophils (%) (Auto) 67.2 % Lymphocytes (%) (Auto) 22.9 % Monocytes (%) (Auto) 8.3 % Eosinophils (%) (Auto) 1.1 % Basophils (%) (Auto) 0.5 % Neutrophils # (Auto) 5.8 TH/MM3 Lymphocytes # (Auto) 2.0 TH/MM3 Monocytes # (Auto) 0.7 TH/MM3 Eosinophils # (Auto) 0.1 TH/MM3 Basophils # (Auto) 0.0 TH/MM3 CBC Comment DIFF FINAL Differential Comment Prothrombin Time 10.7 SEC Prothromb Time International Ratio 1.0 RATIO Activated Partial Thromboplast Time 25.9 SEC D-Dimer Quantitative (PE/DVT) 0.91 MG/L FEU Blood Urea Nitrogen 12 MG/DL Creatinine 0.71 MG/DL Random Glucose 98 MG/DL Calcium Level 8.9 MG/DL Magnesium Level 1.9 MG/DL Sodium Level 135 MEQ/L Potassium Level 3.6 MEQ/L Chloride Level 103 MEQ/L Carbon Dioxide Level 25.3 MEQ/L Anion Gap 7 MEQ/L Estimat Glomerular Filtration Rate 80 ML/MIN Total Creatine Kinase 47 U/L Troponin I LESS THAN 0.02 NG/ML B-Type Natriuretic Peptide 92 PG/ML MDM Medical Decision Making Medical Screen Exam Complete: Yes Emergency Medical Condition: Yes Medical Record Reviewed: Yes Interpretation(s) Twelve-lead EKG was reviewed by me. Normal sinus rhythm, left axis deviation, nonspecific ST-T wave changes, poor R-wave progression. Heart rate of 77 bpm. Differential Diagnosis ACS, non-STEMI, stable angina, congestive heart failure Narrative Course 5:20 PM blood test results of back and within acceptable limits. Chest x-ray is negative. Patient was given 2 baby aspirin and 1 sublingual nitroglycerin. Upon reassessment patient says that her pain is still there. I will admit her to the chest pain center to be evaluated by the ice maker and rule out ACS. Procedures EKG Prior to Arrival: No Diagnosis Primary Impression: Chest pain Qualified Codes: R07.9 - Chest pain, unspecified Additional Impression: Dyspnea on exertion Admitting Information Admitting Physician Requests: Observation Darren Moran MD Dec 31, 2016 17:21
[2016-12-31 18:05] VITALS: BP 137/99; PULSE 87; RESP 18; O2SAT 98
--- NOTE | 2016-12-31 18:08 | HHI.HP ---
[facility] Service Family Medicine Primary Care Physician Antonio Lr MD Admission Diagnosis chest pain, rule out ACS Diagnoses: International Travel<30 Days: No Contact w/Intl Traveler<30days: No Known Affected Area: No History of Present Illness 76 year old female with a history of diabetes type II, hyperlipidemia, hypertension, asthma, and first-degree AV block presents to the ED with palpitations and chest heaviness. Onset of symptoms was 3 weeks ago. She gets a sensation of heaviness that is not associated with exertion. The pain comes on suddenly and lasts for hours. It is located in the center of the chest. It does not radiate to her jaw or down her arms. The pressure can be intense. She also has sensation of palpitations that is associated with physical activity. She can feel her heart beating in her chest. It sometimes feels like a "thud". In addition, she has exertional dyspnea for the past 3 weeks, along with fatigue. She gets short of breath just walking to the kitchen. She gets lightheaded with exertion but does not have diaphoresis. She does not have coughing or wheezing. She reports no history of reflux. She reports no association of the chest pressure with meals. She reports no history of cardiac disease or congestive heart failure. She has no history of atrial fibrillation. She has no recent history of long travel. She is not bed ridden and no recent surgeries. Has documentation of cardiac catheterization in 1999. Review of Systems Constitutional: DENIES: Fatigue, Fever, Weight gain, Weight loss, Dizziness, Change in appetite Endocrine: DENIES: Polydipsia, Polyuria, Polyphagia Eyes: DENIES: Blurred vision, Vision loss Ears, nose, mouth, throat: DENIES: Odynophagia Respiratory: COMPLAINS OF: Shortness of breath, DENIES: Cough, Wheezing, Sputum production Cardiovascular: COMPLAINS OF: Chest pain, Palpitations, Dyspnea on Exertion, DENIES: Syncope, Lower Extremity Edema, Orthopnea Gastrointestinal: DENIES: Abdominal pain, Constipation, Diarrhea, Nausea, Vomiting Genitourinary: DENIES: Urinary incontinence Musculoskeletal: DENIES: Joint pain, Back pain, Neck pain Integumentary: DENIES: Rash Hematologic/lymphatic: DENIES: Lymphadenopathy Immunologic/allergic: DENIES: Eczema Neurologic: DENIES: Headache, Localized weakness, Poor Balance Psychiatric: DENIES: Anxiety, Confusion, Mood changes, Depression Past Family Social History Past Medical History PMH: Diabetes type II Hypertension Asthma Hyperlipidemia Past Surgical History Laminectomy L3-5 right knee replacement Tonsillectomy, adenoidectomy Reported Medications Reported Meds & Active Scripts Active Pulmicort Flexhaler (Budesonide Powder Inh) 180 Mcg/Act Inhp 180 Mcg INH Q12HR Lunesta (Eszopiclone) 2 Mg Tab 3 Mg PO HS PRN Serevent Diskus Inh (Salmeterol Xinafoate) 50 Mcg/Act Aero 2 Inhaler INH DAILY Lorazepam 1 Mg Tab 1 Mg PO BID PRN Proventil Hfa 6.7 GM Inh (Albuterol Sulfate) 90 Mcg/Act Aer 2 Puff INH Q4H PRN Norvasc (Amlodipine Besylate) 10 Mg Tab 10 Mg PO DAILY Metformin ER (Metformin HCl) 1,000 Mg Zohreh 2,000 Mg PO HS With evening meal Atorvastatin (Atorvastatin Calcium) 40 Mg Tab 40 Mg PO HS Reported Losartan (Losartan Potassium) 100 Mg Tab 100 Mg PO DAILY Januvia (Sitagliptin Phosphate) 100 Mg Tab 100 Mg PO DAILY Allergies: Coded Allergies: No Known Allergies (Unverified , 12/31/16) Active Ordered Medications Inpatient Medications Acetaminophen/ Hydrocodone Bitart ([place] 7.5-325 Mg) 1 tab Q4H PRN PO PAIN SCALE 1 TO 7; Start 12/31/16 at 18:15; Status UNV Aspirin (Aspirin Chew) 81 mg DAILY CHEW ; Start 01/01/17 at 09:00; Status UNV Bisacodyl (Dulcolax Supp) 10 mg DAILY PRN RECTAL SEVERE CONSITIPATION; Start 12/31/16 at 18:15; Status UNV Enoxaparin Sodium (Lovenox Inj) 40 mg Q24H SQ ; Start 12/31/16 at 18:15; Status UNV Lactulose (Lactulose Liq) 30 ml DAILY PRN PO SEVERE CONSITIPATION; Start 12/31 at 18:15; Status UNV Magnesium Hydroxide (Milk Of Magnesia Liq) 30 ml Q12H PRN PO MILD - MODERATE CONSTIPATION; Start 12/31/16 at 18:15; Status UNV Morphine Sulfate (Morphine Inj) 1 mg Q4H PRN IV PUSH PAIN SCALE 8 TO 10; Start 12/31/16 at 18:15; Status UNV Naloxone HCl (Narcan Inj) 0.4 mg UNSCH PRN IV PUSH SEE LABEL COMMENTS; Start 12/31/16 at 18:15; Status UNV Nitroglycerin (Nitrostat Sl) 0.4 mg Q5M PRN SL CHEST PAIN; Start 12/31/16 at 18:15; Status UNV Ondansetron HCl (Zofran Inj) 4 mg Q6H PRN IV PUSH NAUSEA; Start 12/31/16 at 18 :15; Status UNV Senna/Docusate Sodium (Daniella-Colace) 1 tab BID PO ; Start 12/31/16 at 21:00; Status UNV Sennosides (Senokot) 17.2 mg Q12H PRN PO MODERATE - SEVERE CONSTIPATION; Start 12/31/16 at 18:15; Status UNV Sodium Chloride (NS Flush) 2 ml BID IV FLUSH ; Start 12/31/16 at 21:00; Status UNV Family History Mother: of congestive heart failure: late 50's Brother: with congestive heart failure: age 50's Dad: natural causes age 86 Social History Smoking: quit 20 years, smoked for 30 years, 1-2 PPD Alcohol use: None Drug use: none 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 No JVD or lymphadenopathy. CARDIOVASCULAR: Regular rate and rhythm without murmurs, gallops, or rubs. Normal pulses peripherally. No calf tenderness. RESPIRATORY: Mild wheezing in the lung bases, no crackles or rhonchi. No consolidations. GASTROINTESTINAL: Abdomen soft, non-tender, nondistended. No hepato-splenomegaly , or palpable masses. No guarding. MUSCULOSKELETAL: Normal range of motion, no peripheral edema NEUROLOGICAL: Awake and alert. Cranial nerves II through XII intact. Motor and sensory grossly within normal limits. Laboratory Laboratory Tests Test 12/31/16 15:45 White Blood Count 8.6 Red Blood Count 4.65 Hemoglobin 13.1 Hematocrit 37.9 Mean Corpuscular Volume 81.5 Mean Corpuscular Hemoglobin 28.1 Mean Corpuscular Hemoglobin Concent 34.4 Red Cell Distribution Width 18.4 Platelet Count 244 Mean Platelet Volume 8.8 Neutrophils (%) (Auto) 67.2 Lymphocytes (%) (Auto) 22.9 Monocytes (%) (Auto) 8.3 Eosinophils (%) (Auto) 1.1 Basophils (%) (Auto) 0.5 Neutrophils # (Auto) 5.8 Lymphocytes # (Auto) 2.0 Monocytes # (Auto) 0.7 Eosinophils # (Auto) 0.1 Basophils # (Auto) 0.0 CBC Comment DIFF FINAL Differential Comment Prothrombin Time 10.7 Prothromb Time International Ratio 1.0 Activated Partial Thromboplast Time 25.9 Blood Urea Nitrogen 12 Creatinine 0.71 Random Glucose 98 Calcium Level 8.9 Magnesium Level 1.9 Sodium Level 135 Potassium Level 3.6 Chloride Level 103 Carbon Dioxide Level 25.3 Anion Gap 7 Estimat Glomerular Filtration Rate 80 Total Creatine Kinase 47 Troponin I LESS THAN 0.02 Result Diagram: 12/31/16 1545 12/31/16 1545 Imaging Last 72 hours Impressions Chest X-Ray 12/31/16 1454 Signed Impressions: Service Date/Time: December 15:32 - CONCLUSION: No acute disease. Kurt Mas Jr., MD Septic Shock Reassessment Heart: Regular rate and rhythm Lungs: Clear Skin: Warm Capillary Refill: <2 seconds Caprini VTE Risk Assessment Caprini VTE Risk Assessment: Mod/High Risk (score >= 2) Caprini Risk Assessment Model Point Value = 1 Point Value = 2 Point Value = 3 Point Value = 5 Age 41-60 Minor surgery BMI > 25 kg/m2 Swollen legs Varicose veins or History of unexplained or recurrent spontaneous Oral contraceptives or hormone replacement Sepsis (< 1 month) Serious lung disease, including pneumonia (< 1 month) Abnormal pulmonary function Acute myocardial infarction Congestive heart failure (< 1 month) History of inflammatory bowel disease Medical patient at bed rest Age 61-74 Arthroscopic surgery Major open surgery (> 45 min) Laparoscopic surgery (> 45 min) Malignancy Confined to bed (> 72 hours) Immobilizing plaster cast Central venous access Age >= 75 History of VTE Family history of VTE Factor V Leiden Prothrombin [id number] Lupus anticoagulant Anticardiolipin antibodies Elevated serum homocysteine Heparin-induced thrombocytopenia Other congenital or acquired thrombophilia Stroke (< 1 month) Elective arthroplasty Hip, pelvis, or leg fracture Acute spinal cord injury (< 1 month) Prophylaxis Regimen Total Risk Factor Score Risk Level Prophylaxis Regimen 0-1 Low Early ambulation 2 Moderate Order ONE of the following: *Sequential Compression Device (SCD) *Heparin 5000 units SQ BID 3-4 Higher Order ONE of the following medications: *Heparin 5000 units SQ TID *Enoxaparin/Lovenox 40 mg SQ daily (WT < 150 kg, CrCl > 30 mL/min) *Enoxaparin/Lovenox 30 mg SQ daily (WT < 150 kg, CrCl > 10-29 mL/min) *Enoxaparin/Lovenox 30 mg SQ BID (WT < 150 kg, CrCl > 30 mL/min) AND/OR *Sequential Compression Device (SCD) 5 or more Highest Order ONE of the following medications: *Heparin 5000 units SQ TID (Preferred with Epidurals) *Enoxaparin/Lovenox 40 mg SQ daily (WT < 150 kg, CrCl > 30 mL/min) *Enoxaparin/Lovenox 30 mg SQ daily (WT < 150 kg, CrCl > 10-29 mL/min) *Enoxaparin/Lovenox 30 mg SQ BID (WT < 150 kg, CrCl > 30 mL/min) AND *Sequential Compression Device (SCD) Assessment and Plan Assessment and Plan 76 year old female presents with chest pressure for the past 3 weeks Code Status DNR Discussed Condition With Will discuss with primary team, discussed with Dr. Moran Problem List: (1) Chest pain ICD Codes: R07.9 - Chest pain, unspecified Status: Acute Plan: Chest pressure that is non-exertional, along with palpitations that is exertional. Feelings of lightheadedness with exertion. Feelings of dyspnea with exertion. Reviewed EKG, non-specific ST changes, possible right bundle branch block. No arrhythmia. Initial troponin negative. Differential broad, including acute MN, unstable angina, gastroesophageal reflux, costochondritis, anxiety, COPD/asthma. - Troponin every 4 hours - EKG every 4 hours - Pain management with [place] 7.5/325 for pain 1-7, morphine 1 mg for pain 8-10. - Sublingual nitro PRN for chest pain - Cardiac monitoring continuously with pulse oximetry - Aspirin 81 mg daily - Continue atorvastatin 40 mg qHS - Would benefit from stress testing when stable (2) Dyspnea on exertion ICD Codes: R06.09 - Other forms of dyspnea Status: Acute Plan: New dyspnea on exertion, history of asthma. Chest x-ray negative for acute process. No coughing. No lower extremity edema. No orthopnea. No cardiomegaly. Wells score 0 for PE. DDx includes ACS, PE, COPD/asthma, atrial fibrillation, SVT, anxiety. - Check d-dimer - Check BNP - Rule out ACS (see above) - Continue inhalers from home for asthma/shortness of breath (3) Hypercholesterolemia ICD Codes: E78.0 - Pure hypercholesterolemia Status: Chronic Plan: - Continue atorvastatin 40 mg daily (4) Hypertension ICD Codes: I10 - Essential (primary) hypertension Status: Chronic Plan: Hypertensive in emergency department - Resume home medications: amlodipine 10 mg daily, Losartan 100 mg daily (5) Asthma ICD Codes: J45.909 - Unspecified asthma, uncomplicated Status: Chronic Plan: Continue home medications: - Albuterol PRN for shortness of breath/wheezing - Continue Serevent daily (6) No contraindication to deep vein thrombosis (DVT) prophylaxis ICD Codes: Z78.9 - Other specified health status Status: Acute Plan: - Lovenox 40 mg daily - Check D-dimer, Wells score 0 (7) Nutrition, metabolism, and development symptoms ICD Codes: R63.8 - Other symptoms and signs concerning food and fluid intake Status: Acute Plan: PO fluids Heart healthy diet Electrolytes normal Momo Danielson MD R3 Dec 31, 2016 18:08
[2016-12-31] MEDS ORDERED: MAGNESIUM HYDROXIDE SUSP 30 ML CUP PO PRN (18:15)
[2016-12-31] MEDS ORDERED: LACTULOSE SYRUP 20 GM/30 ML CUP PO PRN (18:15)
[2016-12-31] MEDS ORDERED: MORPHINE SULFATE 4 MG/ML INJ IV PUSH PRN (18:15)
[2016-12-31] MEDS ORDERED: BISACODYL 10 MG SUPP RECTAL PRN (18:15)
[2016-12-31] MEDS ORDERED: SENNOSIDES 8.6 MG TAB PO PRN (18:15)
[2016-12-31] MEDS ORDERED: NITROGLYCERIN 0.4 MG SL 25 TABS/BTL SL PRN (18:15)
[2016-12-31] MEDS ORDERED: SODIUM CHLORIDE 0.9% FLUSH 10 ML FLUSH IV FLUSH PRN (18:15)
[2016-12-31] MEDS ORDERED: NALOXONE HCL 0.4 MG/ML AMP IV PUSH PRN (18:15)
[2016-12-31] MEDS ORDERED: ONDANSETRON HCL 4 MG/2 ML VIAL IV PUSH PRN (18:15)
[2016-12-31] MEDS ORDERED: LORazepam 1 MG TAB PO PRN (18:30)
[2016-12-31] MEDS ORDERED: ALBUTEROL SULFATE 90 MCG/ACT HFA 8 GM INHALER INH PRN (18:30)
--- NOTE | 2016-12-31 18:45 | EKG ---
Date Performed: 12/31/2016 Time Performed: 15:42:58 PTAGE: 76 years EKG: Sinus rhythm POSSIBLE ANTERIOR MYOCARDIAL INFARCTION ABNORMAL ECG PREVIOUS TRACING : 07/20/2016 09.53 No significant change from previous tracing noted. DOCTOR: Champ Shepherd Interpretating Date/Time 12/31/2016 18:42:41
[2016-12-31 19:50] VITALS: BP 138/71; PULSE 95; RESP 16; TEMP 97.5; O2SAT 97
[2016-12-31] MEDS ORDERED: BUDESONIDE 180 MCG INH SCH (21:00)
[2016-12-31 21:02] VITALS: PULSE 84
[2016-12-31] MEDS: ENOXAPARIN SODIUM 40 MG/0.4 ML SYRINGE SQ SCH (21:09)
[2016-12-31] MEDS: DOCUSATE SODIUM 50 MG/SENNA 8.6 MG TAB PO SCH (21:10)
[2016-12-31] MEDS: ATORVASTATIN 40 MG TAB PO SCH (21:10)
[2016-12-31] MEDS: SODIUM CHLORIDE 0.9% FLUSH 10 ML FLUSH IV FLUSH SCH (21:10)
[2016-12-31] MEDS: ESZOPICLONE 2 MG TAB PO PRN (22:24)
[2016-12-31 23:58] VITALS: BP 145/67; PULSE 82; RESP 18; TEMP 97.8; O2SAT 96
[2017-01-01] VITALS (9 sets, daily range): BP systolic 119–157; BP diastolic 60–72; PULSE 70–88; RESP 17–20; TEMP 97.3–98.3; O2SAT 96–98
[2017-01-01] MEDS ORDERED: DEXTROSE 50% IN WATER 50 ML VIAL(D50) IV PUSH PRN (03:15)
[2017-01-01] MEDS ORDERED: GLUCAGON 1 MG/ML VIAL OTHER PRN (03:15)
--- NOTE | 2017-01-01 07:07 | EKG ---
Date Performed: 12/31/2016 Time Performed: 20:08:34 PTAGE: 76 years EKG: Sinus rhythm WITH FREQUENT VENTRICULAR PREMATURE COMPLEXES POSSIBLE ANTERIOR MYOCARDIAL INFARCTION NONSPECIFIC HI GH LATERAL T WAVE ABNORMALITY ABNORMAL RHYTHM ECG PREVIOUS TRACING : 12/31/2016 15.42 Compared to previous tracing, PVCs are now present. DOCTOR: Champ Shepherd Interpretating Date/Time 01/01/2017 07:05:15
[2017-01-01] MEDS: ASPIRIN 81 MG CHEW TAB CHEW SCH (08:24)
[2017-01-01] MEDS: LOSARTAN 50 MG TAB PO SCH (08:29)
[2017-01-01] MEDS: SODIUM CHLORIDE 0.9% FLUSH 10 ML FLUSH IV FLUSH SCH ×2 (08:29→22:32)
[2017-01-01] MEDS: DOCUSATE SODIUM 50 MG/SENNA 8.6 MG TAB PO SCH ×2 (08:29→22:33)
[2017-01-01] MEDS: INSULIN ASPART SUPPLEMENTAL SCALE SQ SCH ×4 (08:31→22:36)
[2017-01-01] MEDS ORDERED: SALMETEROL XINAFOATE 50 MCG DISKUS INH SCH (09:00)
--- NOTE | 2017-01-01 09:09 | EKG ---
Date Performed: 01/01/2017 Time Performed: 00:04:02 PTAGE: 76 years EKG: Sinus rhythm WITH FIRST DEGREE AV BLOCK WITH OCCASIONAL SUPRAVENTRICULAR PREMATURE COMPLEXES LEFT AXIS DEVIATION ANTEROSEPTAL MYOCARDIAL INFARCTION NONSPECIFIC ST/T CHANGES ABNORMAL ECG PREVIOUS TRACING : 12/31/2016 20.08 Compared to previous tracing, PVCs are no longer present. DOCTOR: Champ Shepherd Interpretating Date/Time 01/01/2017 09:08:09
--- NOTE | 2017-01-01 09:59 | HHI.HP ---
[facility] Service Family Medicine Primary Care Physician Antonio Lr MD Admission Diagnosis chest pain, rule out ACS Diagnoses: (1) Intermittent palpitations Diagnosis: Principal (2) Dyspnea on exertion Diagnosis: Principal (3) Hypercholesterolemia Diagnosis: Principal (4) Hypertension Diagnosis: Principal (5) Asthma Diagnosis: Principal (6) No contraindication to deep vein thrombosis (DVT) prophylaxis Diagnosis: Principal (7) Nutrition, metabolism, and development symptoms Diagnosis: Principal International Travel<30 Days: No Contact w/Intl Traveler<30days: No Known Affected Area: No History of Present Illness Ms Díaz is a 76 year old female with a history of diabetes type II, hyperlipidemia, hypertension, asthma, and first-degree AV block who presented to the ED with palpitations and no chest pain today but report of heaviness. Onset of symptoms was 3 weeks ago. She gets a sensation of heaviness that is not associated with exertion. The pain comes on suddenly and lasts for hours. It is located in the center of the chest. It does not radiate to her jaw or down her arms. The pressure can be intense. She also has sensation of palpitations that is associated with physical activity. She can feel her heart beating in her chest. It sometimes feels like a "thud". In addition, she has exertional dyspnea for the past 3 weeks, along with fatigue. She gets short of breath just walking to the kitchen. She gets lightheaded with exertion but does not have diaphoresis. She does not have coughing or wheezing. She reports no history of reflux. She reports no association of the chest pressure with meals. She reports no history of cardiac disease or congestive heart failure. She has no history of atrial fibrillation. She has no recent history of long travel. She is not bed ridden and no recent surgeries. Has documentation of cardiac catheterization in 1999. Her troponins were fine as was her telemetry overnight. Initially she denied any chest pain and only spoke about palpitations but when asked repeatedly did admit to chest heaviness. Review of Systems Musculoskeletal: COMPLAINS OF: Joint pain (knee) Other Constitutional: DENIES: Fatigue, Fever, Weight gain, Weight loss, Dizziness, Change in appetite Endocrine: DENIES: Polydipsia, Polyuria, Polyphagia Eyes: DENIES: Blurred vision, Vision loss Ears, nose, mouth, throat: DENIES: Odynophagia Respiratory: COMPLAINS OF: Shortness of breath, DENIES: Cough, Wheezing, Sputum production Cardiovascular: COMPLAINS OF: Chest pain, Palpitations, Dyspnea on Exertion, DENIES: Syncope, Lower Extremity Edema, Orthopnea Gastrointestinal: DENIES: Abdominal pain, Constipation, Diarrhea, Nausea, Vomiting Genitourinary: DENIES: Urinary incontinence Musculoskeletal: DENIES: Joint pain, Back pain, Neck pain Integumentary: DENIES: Rash Hematologic/lymphatic: DENIES: Lymphadenopathy Immunologic/allergic: DENIES: Eczema Neurologic: DENIES: Headache, Localized weakness, Poor Balance Psychiatric: DENIES: Anxiety, Confusion, Mood changes, Depression Past Family Social History Past Medical History PMH: Diabetes type II Hypertension Asthma Hyperlipidemia Past Surgical History Laminectomy L3-5 right knee replacement with continued pain Tonsillectomy, adenoidectomy Allergies: Coded Allergies: No Known Allergies (Unverified , 12/31/16) Family History Mother: of congestive heart failure: late 50's Brother: with congestive heart failure: age 50's Dad: natural causes age 86 Social History Smoking: quit 20 years, smoked for 30 years, 1-2 PPD Alcohol use: None Drug use: none 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 appears slightly anxious SKIN: No rashes or lesions HEENT: Normocephalic, no conjunctivitis, no nasal discharge, normal pharynx NECK: Trachea midline. No JVD or lymphadenopathy. CARDIOVASCULAR: Regular rate and rhythm without murmurs, gallops, or rubs. Normal pulses peripherally. No calf tenderness. RESPIRATORY: Mild wheezing in the lung bases, no crackles or rhonchi. No consolidations. GASTROINTESTINAL: Abdomen soft, non-tender, nondistended. No hepato-splenomegaly , or palpable masses. No guarding. MUSCULOSKELETAL: Normal range of motion, no peripheral edema. some erythema right knee with well healed scar NEUROLOGICAL: Awake and alert. Cranial nerves II through XII intact. Motor and sensory grossly within normal limits. Laboratory Laboratory Tests Test 12/31/16 15:45 12/31/16 21:15 01/01/17 00:50 White Blood Count 8.6 Red Blood Count 4.65 Hemoglobin 13.1 Hematocrit 37.9 Mean Corpuscular Volume 81.5 Mean Corpuscular Hemoglobin 28.1 Mean Corpuscular Hemoglobin Concent 34.4 Red Cell Distribution Width 18.4 Platelet Count 244 Mean Platelet Volume 8.8 Neutrophils (%) (Auto) 67.2 Lymphocytes (%) (Auto) 22.9 Monocytes (%) (Auto) 8.3 Eosinophils (%) (Auto) 1.1 Basophils (%) (Auto) 0.5 Neutrophils # (Auto) 5.8 Lymphocytes # (Auto) 2.0 Monocytes # (Auto) 0.7 Eosinophils # (Auto) 0.1 Basophils # (Auto) 0.0 CBC Comment DIFF FINAL Differential Comment Prothrombin Time 10.7 Prothromb Time International Ratio 1.0 Activated Partial Thromboplast Time 25.9 D-Dimer Quantitative (PE/DVT) 0.91 Blood Urea Nitrogen 12 Creatinine 0.71 Random Glucose 98 Calcium Level 8.9 Magnesium Level 1.9 Sodium Level 135 Potassium Level 3.6 Chloride Level 103 Carbon Dioxide Level 25.3 Anion Gap 7 Estimat Glomerular Filtration Rate 80 Total Creatine Kinase 47 Troponin I LESS THAN 0.02 LESS THAN 0.02 LESS THAN 0.02 B-Type Natriuretic Peptide 92 Lipase 159 Result Diagram: 12/31/16 1545 12/31/16 1545 Imaging Last 72 hours Impressions Chest X-Ray 12/31/16 0715 Signed Impressions: Service Date/Time: December 15:32 - CONCLUSION: No acute disease. MD Yelena Larsen Jr. VTE Risk Assessment Yelena VTE Risk Assessment: Mod/High Risk (score >= 2) Caprini Risk Assessment Model Point Value = 1 Point Value = 2 Point Value = 3 Point Value = 5 Age 41-60 Minor surgery BMI > 25 kg/m2 Swollen legs Varicose veins or History of unexplained or recurrent spontaneous Oral contraceptives or hormone replacement Sepsis (< 1 month) Serious lung disease, including pneumonia (< 1 month) Abnormal pulmonary function Acute myocardial infarction Congestive heart failure (< 1 month) History of inflammatory bowel disease Medical patient at bed rest Age 61-74 Arthroscopic surgery Major open surgery (> 45 min) Laparoscopic surgery (> 45 min) Malignancy Confined to bed (> 72 hours) Immobilizing plaster cast Central venous access Age >= 75 History of VTE Family history of VTE Factor V Leiden Prothrombin [id number] Lupus anticoagulant Anticardiolipin antibodies Elevated serum homocysteine Heparin-induced thrombocytopenia Other congenital or acquired thrombophilia Stroke (< 1 month) Elective arthroplasty Hip, pelvis, or leg fracture Acute spinal cord injury (< 1 month) Prophylaxis Regimen Total Risk Factor Score Risk Level Prophylaxis Regimen 0-1 Low Early ambulation 2 Moderate Order ONE of the following: *Sequential Compression Device (SCD) *Heparin 5000 units SQ BID 3-4 Higher Order ONE of the following medications: *Heparin 5000 units SQ TID *Enoxaparin/Lovenox 40 mg SQ daily (WT < 150 kg, CrCl > 30 mL/min) *Enoxaparin/Lovenox 30 mg SQ daily (WT < 150 kg, CrCl > 10-29 mL/min) *Enoxaparin/Lovenox 30 mg SQ BID (WT < 150 kg, CrCl > 30 mL/min) AND/OR *Sequential Compression Device (SCD) 5 or more Highest Order ONE of the following medications: *Heparin 5000 units SQ TID (Preferred with Epidurals) *Enoxaparin/Lovenox 40 mg SQ daily (WT < 150 kg, CrCl > 30 mL/min) *Enoxaparin/Lovenox 30 mg SQ daily (WT < 150 kg, CrCl > 10-29 mL/min) *Enoxaparin/Lovenox 30 mg SQ BID (WT < 150 kg, CrCl > 30 mL/min) AND *Sequential Compression Device (SCD) Assessment and Plan Assessment and Plan 76 year old female presents with chest pressure for the past 3 weeks will ask Cardiology about what workup is indicated. now she is asymptomatic but has had weeks of sxs Problem List: (1) Chest pain ICD Codes: R07.9 - Chest pain, unspecified Status: Acute Plan: Chest pressure that is non-exertional, along with palpitations that is exertional. Feelings of lightheadedness with exertion. Feelings of dyspnea with exertion. Reviewed EKG, non-specific ST changes, possible right bundle branch block. No arrhythmia. troponins negative. Differential broad, including acute MA, unstable angina, gastroesophageal reflux, costochondritis, anxiety, COPD/ asthma. - Troponins done and normal - EKG every 4 hours - Pain management with [place] 7.5/325 for pain 1-7, morphine 1 mg for pain 8-10. - Sublingual nitro PRN for chest pain - Cardiac monitoring continuously with pulse oximetry, no arrhythmias seen - Aspirin 81 mg daily - Continue atorvastatin 40 mg qHS - may benefit from stress testing when stable, will consult Cardiology as she is high risk with her DM, HTN and elevated cholesterol (2) Dyspnea on exertion ICD Codes: R06.09 - Other forms of dyspnea Status: Acute Plan: New dyspnea on exertion, history of asthma. Chest x-ray negative for acute process. No coughing. No lower extremity edema. No orthopnea. No cardiomegaly. Wells score 0 for PE. DDx includes ACS, PE, COPD/asthma, atrial fibrillation, SVT, anxiety. - Checked d-dimer - Check BNP - Rule out ACS (see above) - Continue inhalers from home for asthma/shortness of breath -getting echo (3) Hypercholesterolemia ICD Codes: E78.0 - Pure hypercholesterolemia Status: Chronic Plan: - Continue atorvastatin 40 mg daily (4) Hypertension ICD Codes: I10 - Essential (primary) hypertension Status: Chronic Plan: Hypertensive in emergency department - Resume home medications: amlodipine 10 mg daily, Losartan 100 mg daily (5) Asthma ICD Codes: J45.909 - Unspecified asthma, uncomplicated Status: Chronic Plan: Continue home medications: - Albuterol PRN for shortness of breath/wheezing - Continue Serevent daily (6) No contraindication to deep vein thrombosis (DVT) prophylaxis ICD Codes: Z78.9 - Other specified health status Status: Acute Plan: - Lovenox 40 mg daily - Check D-dimer, Wells score 0 (7) Nutrition, metabolism, and development symptoms ICD Codes: R63.8 - Other symptoms and signs concerning food and fluid intake Status: Acute Plan: PO fluids Heart healthy diet Electrolytes normal Problem Qualifiers (1) Hypertension: Qualified Codes: I10 - Essential (primary) hypertension (2) Asthma: Qualified Codes: J45.909 - Unspecified asthma, uncomplicated (3) Chest pain: Qualified Codes: R07.2 - Precordial pain Alla Patel MD Jan 01, 2017 09:59
--- NOTE | 2017-01-01 12:41 | MB ---
cc: CULLEN WREN DO DATE OF CONSULTATION 01/01/2017 REASON FOR CONSULTATION Palpitations, chest pain. HISTORY OF PRESENT ILLNESS Shana Díaz is a pleasant 76-year-old female who presented to [facility] on December 31, 2016 due mostly to palpitations, but also having some chest pain. She states that she has had on and off episodes of palpitations which she has trouble describing as regular or irregular in nature, but they seem to happen for brief moments in time of 30 seconds to a minute. During this, she does not feel chest pain, lightheadedness, or worn down. She states that she also has an episode where she feels that her heart is beating harder than it should and there is some questionable heaviness to the chest with this. The pain does not seem to radiate to her jaw, arms or back. When she does get the palpitations, she does feel somewhat more short of breath. She has also been feeling more fatigued over the past few weeks. In seeing her, she is currently without chest pain, shortness of breath, hemodynamically and cardiovascularly stable. Telemetry was reviewed showing normal sinus rhythm with occasional PVC but no arrhythmia is noted. PAST MEDICAL HISTORY 1. Type 2 diabetes mellitus 2. Hypertension 3. Asthma 4. Hyperlipidemia 5. Syncopal episode in July 2006 for which there was a question of possible TIA, although brain MRI showed no areas concerning for such. Symptoms thought may be due to hyponatremia. PAST SURGICAL HISTORY 1. Cardiac catheterization (believed to be in 1999) with no significant disease per the patient. 2. Laminectomy of L3-L5. 3. Right knee replacement with continued pain. 4. Tonsillectomy with adenoidectomy. ALLERGIES NO KNOWN DRUG ALLERGIES. MEDICATIONS 1. Albuterol as needed for shortness of breath. 2. Serevent discus daily 3. Lipitor 40 mg every night 4. Norvasc 10 mg daily 5. Losartan 100 mg daily 6. Lorazepam 1 mg b.i.d. as needed for anxiety 7. Lunesta 3 mg every night as needed for insomnia 8. Pulmicort 180 mcg every 12 hours 9. Metformin 2000 mg every night 10. Januvia 100 mg daily FAMILY HISTORY Mother of congestive heart failure in her late 50s. Brother of congestive heart failure in his 50s. Dad of natural causes at the age of 86. SOCIAL HISTORY The patient smoked for 30 years around one to two packs per day, quitting 20 years ago. Denies alcohol or drug abuse. REVIEW OF SYSTEMS 14-systems were reviewed including osteopathic pertinent positives and negatives as above otherwise negative. PHYSICAL EXAMINATION VITAL SIGNS: Temperature 97.9, heart rate 87, blood pressure 143/64, respirations 20, pulse ox 98% on room air. GENERAL: The patient appears well in no acute distress, alert awake and oriented x3. HEAD, EYES, EARS, NOSE, AND THROAT: Extraocular muscles intact. Mucous membranes moist. NECK: Supple. No JVD at 45 degrees. No carotid bruits heard bilaterally. Carotid upstroke is brisk in nature. HEART: Regular rate and rhythm, positive first and second heart sounds with no known murmurs, gallops or rubs. PMI is nondisplaced. LUNGS: Clear to auscultation bilaterally. No wheezes, rales or rhonchi. ABDOMEN: Soft, nontender, and nondistended. No organomegaly noted. EXTREMITIES: Show no clubbing, cyanosis or edema. Femoral and distal pulses intact bilaterally. NEUROLOGIC: No focal deficits. SKIN: Warm, dry and intact. OSTEOPATHIC: No kyphoscoliosis, lordosis or paraspinal tender points. LABORATORY FINDINGS Hemoglobin 13.1, hematocrit 37.9, platelets 244. Potassium 3.6, BUN 12, creatinine 0.71, troponin negative x3. BNP 92, TSH 2.96. Electrocardiogram (January 01, 2017 at 0004) sinus rhythm with first degree AV block, occasional PAC, left axis deviation, poor R-wave progression, cannot rule out anterior septal myocardial infarction, nonspecific ST-T wave changes. IMPRESSION 1. Chest pain, atypical for coronary insufficiency. 2. Possible cardiac awareness 3. Palpitations possibly due to benign PVCs versus arrhythmia. 4. Diabetes mellitus 5. Hyperlipidemia 6. Hypertension 7. Asthma RECOMMENDATIONS 1. Ms. Díaz presented with palpitations and it is difficult to ascertain if they are regular or irregular in nature. She is definitely in an age range where atrial fibrillation should be considered. We will continue to follow her on telemetry to look for any arrhythmias. If negative, she can follow-up outpatient with myself for consideration of event monitor versus a loop recorder. 2. As far as her chest pains go, it is atypical for coronary insufficiency. We will plan on her undergoing a pharmacologic nuclear stress test to rule out significant coronary artery disease. This will have to be done in the morning as she has drank caffeine as of this morning. 3. We will check a 2-D echo to look her overall left ventricular function, cardiac structure and possible valvopathies. 4. If stress test is positive for possible ischemia, we will plan on a cardiac catheterization on Wednesday. 5. Case was discussed with the patient and her and they are in agreement. 6. Further recommendations based on cardiovascular testing as above. Thank you for allowing me to see Shana Díaz. If there are any questions, please do not hesitate to call. Cullen Wren DO VGP/DJL /12:04 PM /12:27 PM
--- NOTE | 2017-01-01 13:20 | ECHRPT ---
Indication: FREQUENT ECTOPY, DYSPNEA, PALPATATIONS CONCLUSIONS The left ventricular systolic function is low normal with an estimated ejection fraction in the rang e of 50- 55%. Trace mitral valve regurgitation. There is trace tricuspid valve regurgitation. BP: 119 / 60 HR: Rhythm: Sinus, PVCs MEASUREMENTS (Male / Female) Normal Values Technical Quality:Fair 2D ECHO LV Diastolic Diameter PLAX 4.7 cm 4.2 - 5.9 / 3.9 - 5.3 cm LV Systolic Diameter PLAX 4.0 cm IVS Diastolic Thickness 0.8 cm 0.6 - 1.0 / 0.6 - 0.9 cm LVPW Diastolic Thickness 0.8 cm 0.6 - 1.0 / 0.6 - 0.9 cm LV Relative Wall Thickness 0.3 LVOT Diameter 2.1 cm Aortic Root Diameter 2.7 cm LA Systolic Diameter LX 3.3 cm 3.0 - 4.0 / 2.7 - 3.8 cm M-MODE AV Cusp Separation MM 1.8 cm DOPPLER AV Peak Velocity 161.0 cm/s AV Peak Gradient 10.4 mmHg AV Mean Gradient 6.0 mmHg AV Velocity Time Integral 33.2 cm LVOT Peak Velocity 85.7 cm/s LVOT Peak Gradient 2.9 mmHg LVOT Velocity Time Integral 17.0 cm AV Area Cont Eq vti 1.8 cm AV Area Cont Eq pk 1.8 cm Mitral E Point Velocity 103.0 cm/s Mitral A Point Velocity 127.0 cm/s Mitral E to A Ratio 0.8 LV E' Lateral Velocity 12.5 cm/s Mitral E to LV E' Lateral Ratio 8.2 LV E' Septal Velocity 8.4 cm/s Mitral E to LV E' Septal Ratio 12.3 TR Peak Velocity 266.0 cm/s TR Peak Gradient 28.3 mmHg Right Atrial Pressure 10.0 mmHg Pulmonary Artery Systolic Pressu 38.3 mmHg Right Ventricular Systolic Press 38.3 mmHg PV Peak Velocity 89.5 cm/s PV Peak Gradient 3.2 mmHg FINDINGS LEFT VENTRICLE The left ventricular systolic function is low normal with an estimated ejection fraction in the rang e of 50- 55%. Wall thickness is normal. Normal left ventricular size. No obvious wall motion abnormalites. RIGHT VENTRICLE Normal right ventricular size and systolic function. LEFT ATRIUM The left atrial size is mildly dilated. RIGHT ATRIUM The right atrial size is normal. ATRIAL SEPTUM Normal atrial septal thickness without atrial level shunting by limited color doppler interrogation. AORTA The aortic root and proximal ascending aorta are normal in size on limited imaging. MITRAL VALVE Grossly normal mitral valve. Trace mitral valve regurgitation. No mitral valve stenosis. AORTIC VALVE Grossly normal aortic valve. No aortic valve regurgitation. No aortic valve stenosis. TRICUSPID VALVE Grossly normal tricuspid valve. There is trace tricuspid valve regurgitation. Normal estimated pulmonary pressures. No tricuspid valve stenosis. PULMONARY VALVE The pulmonary valve is not well visualized. PERICARDIUM No pericardial effusion. Cullen Nguyen DO (Electronically Signed) Final Date:01 January 2017 13:19
[2017-01-01] MEDS: ENOXAPARIN SODIUM 40 MG/0.4 ML SYRINGE SQ SCH (22:31)
[2017-01-01] MEDS: ESZOPICLONE 2 MG TAB PO PRN (22:32)
[2017-01-01] MEDS: ACETAMINOPHEN/HYDROcodone 325 MG/7.5 MG TAB PO PRN (22:33)
[2017-01-01] MEDS: ATORVASTATIN 40 MG TAB PO SCH (22:36)
[2017-01-02 00:45] VITALS: BP 126/61; PULSE 79; RESP 16; TEMP 98; O2SAT 94
[2017-01-02] MEDS: ACETAMINOPHEN/HYDROcodone 325 MG/7.5 MG TAB PO PRN (03:54)
[2017-01-02 04:36] VITALS: BP 132/65; PULSE 69; RESP 18; TEMP 97.8; O2SAT 95
[2017-01-02 07:59] VITALS: BP 156/70; PULSE 67; RESP 16; TEMP 97.5; O2SAT 97
[2017-01-02] MEDS: INSULIN ASPART SUPPLEMENTAL SCALE SQ SCH (08:00)
[2017-01-02] MEDS: ASPIRIN 81 MG CHEW TAB CHEW SCH (08:53)
[2017-01-02] MEDS: DOCUSATE SODIUM 50 MG/SENNA 8.6 MG TAB PO SCH (08:54)
[2017-01-02] MEDS: LOSARTAN 50 MG TAB PO SCH (08:57)
[2017-01-02] MEDS: SODIUM CHLORIDE 0.9% FLUSH 10 ML FLUSH IV FLUSH SCH (09:00)
--- NOTE | 2017-01-02 09:24 | HHI.FPPN ---
Subjective Remarks Patient seen and examined. Afebrile vital signs stable. Patient understands the beginning plan today is to do a nuclear stress test, depending on the results we'll determine her next step during this hospitalization. If anything concerning is seen anticipate cardiac catheterization on Wednesday01/04/17, otherwise she will be discharged for further workup as an outpatient with her residential concierge. She is in agreement with this plan Endorses: Occasional palpitations Denies: Fever, chills, nausea, vomiting, shortness of breath, chest pain, headache, abdominal pain, calf pain All other review of symptoms were negative (Casey Sprague MD, R3) Objective Vitals Vital Signs Date Time Temp Pulse Resp B/P (MAP) Pulse Ox O2 Delivery O2 Flow Rate FiO2 01/02/17 07:59 97.5 67 16 156/70 (98) 97 01/02/17 04:55 16 01/02/17 04:36 97.8 69 18 132/65 (87) 95 01/02/17 00:45 98.0 79 16 126/61 (82) 94 01/01/17 19:29 98.3 88 17 157/72 (100) 96 01/01/17 15:33 97.8 79 18 129/61 (83) 97 01/01/17 11:37 97.9 87 20 143/64 (90) 98 (Casey Sprague MD, R3) Result Diagram: 12/31/16 1545 12/31/16 1545 Imaging Last Impressions Chest X-Ray 12/31/16 1454 Signed Impressions: Service Date/Time: December 15:32 - CONCLUSION: No acute disease. Kurt Mas Jr., MD Objective Remarks GENERAL: Well-nourished well-developed in no apparent distress lying in bed comfortably SKIN: Warm and dry. HEAD: Atraumatic. Normocephalic. EYES: Pupils equal and round. No scleral icterus. No injection or drainage. ENT: No nasal bleeding or discharge. Mucous membranes pink and moist. NECK: Trachea midline. No JVD. CARDIOVASCULAR: Regular rate and rhythm. RESPIRATORY: No accessory muscle use. Clear to auscultation. Breath sounds equal bilaterally. GASTROINTESTINAL: Abdomen soft, non-tender, nondistended. Hepatic and splenic margins not palpable. MUSCULOSKELETAL: Extremities without clubbing, cyanosis, or edema. No obvious deformities. NEUROLOGICAL: Awake and alert. No obvious cranial nerve deficits. Motor grossly within normal limits. Five out of 5 muscle strength in the arms and legs. Normal speech. PSYCHIATRIC: Appropriate mood and affect; insight and judgment normal. Medications and IVs Current Medications Medications (Trade) Dose Ordered Sig/Katie Route Start Time Stop Time Status Last Admin (NS Flush) 2 ml UNSCH PRN IV FLUSH 12/31/16 18:15 (NS Flush) 2 ml BID IV FLUSH 12/31/16 21:00 01/02/17 09:00 ([place] 7.5-325 Mg) 1 tab Q4H PRN PO 12/31/16 18:15 01/02/17 03:54 (Morphine Inj) 1 mg Q4H PRN IV PUSH 12/31/16 18:15 (Zofran Inj) 4 mg Q6H PRN IV PUSH 12/31/16 18:15 (Nitrostat Sl) 0.4 mg Q5M PRN SL 12/31/16 18:15 (Lovenox Inj) 40 mg Q24H SQ 12/31/16 20:00 01/01/17 22:31 (Narcan Inj) 0.4 mg UNSCH PRN IV PUSH 12/31/16 18:15 (Daniella-Colace) 1 tab BID PO 12/31/16 21:00 01/02/17 08:54 (Milk Of Magnesia Liq) 30 ml Q12H PRN PO 12/31/16 18:15 (Senokot) 17.2 mg Q12H PRN PO 12/31/16 18:15 (Dulcolax Supp) 10 mg DAILY PRN RECTAL 12/31/16 18:15 (Lactulose Liq) 30 ml DAILY PRN PO 12/31/16 18:15 (Aspirin Chew) 81 mg DAILY CHEW 01/01/17 09:00 01/02/17 08:53 (Proair Hfa Inh) 2 puff Q4H PRN INH 12/31/16 18:30 (Norvasc) 10 mg DAILY PO 01/01/17 09:00 01/02/17 08:53 (Lipitor) 40 mg HS PO 12/31/16 21:00 01/01/17 22:36 (Lunesta) 3 mg HS PRN PO 12/31/16 18:30 01/01/17 22:32 (Ativan) 1 mg BID PRN PO 12/31/16 18:30 (Cozaar) 100 mg DAILY PO 01/01/17 09:00 01/02/17 08:57 (Serevent Diskus Inh) 50 mcg DAILY INH 01/01/17 09:00 (D50w (Vial) Inj) 50 ml UNSCH PRN IV PUSH 01/01/17 03:15 (Glucagon Inj) 1 mg UNSCH PRN OTHER 01/01/17 03:15 (NovoLOG SUPPLEMENTAL SCALE) 1 ACHS SLIDING SCALE SQ 01/01/17 08:00 01/01/17 22:36 (Casey Sprague MD, R3) A/P Assessment and Plan 76 year old female presents with chest pressure for the past 3 weeks will ask Cardiology about what workup is indicated. now she is asymptomatic but has had weeks of sxs Discharge Planning Discharge pending results of the nuclear stress test planned for today 01/02/17 (Casey Sprague MD, R3) Attending Attestation Patient seen and examined. Case reviewed and discussed with the resident team. Agree with plan of care as discussed with me and documented in the resident note. she was very concerned about her PVCs. she asked about ablation. I reassured her that PVCs were normal. On review of her heart monitor, she had no arrhythmias but just occasional PVCs. She was still concerned but will follow with Cardiology and can discuss this further with him (Alla Patel MD) Problem List: (1) Chest pain ICD Codes: R07.9 - Chest pain, unspecified Status: Acute Plan: - Cardiology consulted, recommendations appreciated - Nuclear stress test plan for today 01/02/17 - Troponins done and normal - Pain management with [place] 7.5/325 for pain 1-7, morphine 1 mg for pain 8-10. - Sublingual nitro PRN for chest pain - Cardiac monitoring continuously with pulse oximetry, no arrhythmias seen - Aspirin 81 mg daily - Continue atorvastatin 40 mg qHS - Echo: Ejection fraction of 50-55% (2) Dyspnea on exertion ICD Codes: R06.09 - Other forms of dyspnea Status: Acute Plan: Patient is no longer complaining of any shortness of breath. Her sats are 100%. On room air -D-dimer appropriate level for her age - Rule out ACS (see above) - Continue inhalers from home for asthma/shortness of breath (3) Hypercholesterolemia ICD Codes: E78.0 - Pure hypercholesterolemia Status: Chronic Plan: - Continue atorvastatin 40 mg daily (4) Hypertension ICD Codes: I10 - Essential (primary) hypertension Status: Chronic Plan: -Continue home medications: amlodipine 10 mg daily, Losartan 100 mg daily (5) Asthma ICD Codes: J45.909 - Unspecified asthma, uncomplicated Status: Chronic Plan: Continue home medications: - Albuterol PRN for shortness of breath/wheezing - Continue Serevent daily (6) No contraindication to deep vein thrombosis (DVT) prophylaxis ICD Codes: Z78.9 - Other specified health status Status: Acute Plan: - Lovenox 40 mg daily (7) Nutrition, metabolism, and development symptoms ICD Codes: R63.8 - Other symptoms and signs concerning food and fluid intake Status: Acute Plan: PO fluids Heart healthy diet Electrolytes normal (Casey Sprague MD, R3) Problem Qualifiers (1) Chest pain: Qualified Codes: R07.2 - Precordial pain (2) Hypertension: Qualified Codes: I10 - Essential (primary) hypertension (3) Asthma: Qualified Codes: J45.909 - Unspecified asthma, uncomplicated Casey Sprague MD, R3 Jan 02, 2017 09:24 Alla Patel MD Jan 03, 2017 13:06
--- NOTE | 2017-01-02 09:32 | HHI.DCPOC ---
Discharge Care Plan Diagnosis: (1) Chest pain (2) Intermittent palpitations Goals to Promote Your Health * To prevent worsening of your condition and complications * To maintain your health at the optimal level Directions to Meet Your Goals Take your medications as prescribed Follow your dietary instruction Follow activity as directed Keep your appointments as scheduled Take your immunizations and boosters as scheduled If your symptoms worsen call your PCP, if no PCP go to Urgent Care Center or Emergency Room Smoking is Dangerous to Your Health. Avoid second hand smoke Call the 24-hour hour crisis hotline for domestic abuse at Casey Sprague MD, R3 Jan 02, 2017 09:32
--- NOTE | 2017-01-02 11:11 | PD.CARD.PN ---
Subjective Subjective Remarks Doing well, no complaints Telemetry showing sinus rhythm Objective Medications Current Medications Medications (Trade) Dose Ordered Sig/Katie Route Start Time Stop Time Status Last Admin (NS Flush) 2 ml UNSCH PRN IV FLUSH 12/31/16 18:15 (NS Flush) 2 ml BID IV FLUSH 12/31/16 21:00 01/02/17 09:00 ([place] 7.5-325 Mg) 1 tab Q4H PRN PO 12/31/16 18:15 01/02/17 03:54 (Morphine Inj) 1 mg Q4H PRN IV PUSH 12/31/16 18:15 (Zofran Inj) 4 mg Q6H PRN IV PUSH 12/31/16 18:15 (Nitrostat Sl) 0.4 mg Q5M PRN SL 12/31/16 18:15 (Lovenox Inj) 40 mg Q24H SQ 12/31/16 20:00 01/01/17 22:31 (Narcan Inj) 0.4 mg UNSCH PRN IV PUSH 12/31/16 18:15 (Daniella-Colace) 1 tab BID PO 12/31/16 21:00 01/02/17 08:54 (Milk Of Magnesia Liq) 30 ml Q12H PRN PO 12/31/16 18:15 (Senokot) 17.2 mg Q12H PRN PO 12/31/16 18:15 (Dulcolax Supp) 10 mg DAILY PRN RECTAL 12/31/16 18:15 (Lactulose Liq) 30 ml DAILY PRN PO 12/31/16 18:15 (Aspirin Chew) 81 mg DAILY CHEW 01/01/17 09:00 01/02/17 08:53 (Proair Hfa Inh) 2 puff Q4H PRN INH 12/31/16 18:30 (Norvasc) 10 mg DAILY PO 01/01/17 09:00 01/02/17 08:53 (Lipitor) 40 mg HS PO 12/31/16 21:00 01/01/17 22:36 (Lunesta) 3 mg HS PRN PO 12/31/16 18:30 01/01/17 22:32 (Ativan) 1 mg BID PRN PO 12/31/16 18:30 (Cozaar) 100 mg DAILY PO 01/01/17 09:00 01/02/17 08:57 (Serevent Diskus Inh) 50 mcg DAILY INH 01/01/17 09:00 (D50w (Vial) Inj) 50 ml UNSCH PRN IV PUSH 01/01/17 03:15 (Glucagon Inj) 1 mg UNSCH PRN OTHER 01/01/17 03:15 (NovoLOG SUPPLEMENTAL SCALE) 1 ACHS SLIDING SCALE SQ 01/01/17 08:00 01/01/17 22:36 Vital Signs / I&O Vital Signs Date Time Temp Pulse Resp B/P (MAP) Pulse Ox O2 Delivery O2 Flow Rate FiO2 01/02/17 07:59 97.5 67 16 156/70 (98) 97 01/02/17 04:55 16 01/02/17 04:36 97.8 69 18 132/65 (87) 95 01/02/17 00:45 98.0 79 16 126/61 (82) 94 01/01/17 19:29 98.3 88 17 157/72 (100) 96 01/01/17 15:33 97.8 79 18 129/61 (83) 97 01/01/17 11:37 97.9 87 20 143/64 (90) 98 Physical Exam GENERAL: NAD, AAOx3 SKIN: Warm and dry. HEAD: Atraumatic. Normocephalic. EYES: Pupils equal and round. No scleral icterus. No injection or drainage. ENT: No nasal bleeding or discharge. Mucous membranes pink and moist. NECK: Trachea midline. No JVD. CARDIOVASCULAR: Regular rate and rhythm. RESPIRATORY: No accessory muscle use. Clear to auscultation. Breath sounds equal bilaterally. GASTROINTESTINAL: Abdomen soft, non-tender, nondistended. Hepatic and splenic margins not palpable. MUSCULOSKELETAL: Extremities without clubbing, cyanosis, or edema. No obvious deformities. Right knee swelling, chronic NEUROLOGICAL: Awake and alert. No obvious cranial nerve deficits. Motor grossly within normal limits. Five out of 5 muscle strength in the arms and legs. Normal speech. PSYCHIATRIC: Appropriate mood and affect; insight and judgment normal. Laboratory Laboratory Tests Test 12/31/16 15:45 12/31/16 21:15 01/01/17 00:50 White Blood Count 8.6 TH/MM3 (4.0-11.0) Red Blood Count 4.65 MIL/MM3 (4.00-5.30) Hemoglobin 13.1 GM/DL (11.6-15.3) Hematocrit 37.9 % (35.0-46.0) Mean Corpuscular Volume 81.5 FL (80.0-100.0) Mean Corpuscular Hemoglobin 28.1 PG (27.0-34.0) Mean Corpuscular Hemoglobin Concent 34.4 % (32.0-36.0) Red Cell Distribution Width 18.4 % (11.6-17.2) Platelet Count 244 TH/MM3 (150-450) Mean Platelet Volume 8.8 FL (7.0-11.0) Neutrophils (%) (Auto) 67.2 % (16.0-70.0) Lymphocytes (%) (Auto) 22.9 % (9.0-44.0) Monocytes (%) (Auto) 8.3 % (0.0-8.0) Eosinophils (%) (Auto) 1.1 % (0.0-4.0) Basophils (%) (Auto) 0.5 % (0.0-2.0) Neutrophils # (Auto) 5.8 TH/MM3 (1.8-7.7) Lymphocytes # (Auto) 2.0 TH/MM3 (1.0-4.8) Monocytes # (Auto) 0.7 TH/MM3 (0-0.9) Eosinophils # (Auto) 0.1 TH/MM3 (0-0.4) Basophils # (Auto) 0.0 TH/MM3 (0-0.2) CBC Comment DIFF FINAL Differential Comment Prothrombin Time 10.7 SEC (9.8-11.6) Prothromb Time International Ratio 1.0 RATIO Activated Partial Thromboplast Time 25.9 SEC (24.3-30.1) D-Dimer Quantitative (PE/DVT) 0.91 MG/L FEU (0.00-0.50) Blood Urea Nitrogen 12 MG/DL (7-18) Creatinine 0.71 MG/DL (0.50-1.00) Random Glucose 98 MG/DL (74-106) Calcium Level 8.9 MG/DL (8.5-10.1) Magnesium Level 1.9 MG/DL (1.5-2.5) Sodium Level 135 MEQ/L (136-145) Potassium Level 3.6 MEQ/L (3.5-5.1) Chloride Level 103 MEQ/L (98-107) Carbon Dioxide Level 25.3 MEQ/L (21.0-32.0) Anion Gap 7 MEQ/L (5-15) Estimat Glomerular Filtration Rate 80 ML/MIN (>89) Total Creatine Kinase 47 U/L (26-192) Troponin I LESS THAN 0.02 NG/ML LESS THAN 0.02 NG/ML LESS THAN 0.02 NG/ML B-Type Natriuretic Peptide 92 PG/ML (0-100) Lipase 159 U/L (73-393) Thyroid Stimulating Hormone 3rd Gen 2.960 uIU/ML (0.358-3.740) Assessment and Plan Problem List: (1) Chest pain ICD Codes: R07.9 - Chest pain, unspecified Status: Acute (2) Intermittent palpitations ICD Codes: R00.2 - Palpitations (3) Hypertension ICD Codes: I10 - Essential (primary) hypertension Status: Chronic (4) Hypercholesterolemia ICD Codes: E78.0 - Pure hypercholesterolemia Status: Chronic (5) Anxiety disorder ICD Codes: F41.9 - Anxiety disorder, unspecified Status: Chronic (6) Type 2 diabetes mellitus ICD Codes: E11.9 - Type 2 diabetes mellitus Status: Chronic (7) Dyspnea on exertion ICD Codes: R06.09 - Other forms of dyspnea Status: Acute Assessment and Plan 1) No arrhythmias noted overnight 2) Plan for stress test today If positive will need catheterization on Wednesday Severe nickel allergy, 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 if CAD will need POBA or CABG If negative, may be discharged today for follow up in the office with me 3) EF 50-55%, trace MR/TR 4) Will need Event monitor or loop recorder outpatient, will discuss further with her in the office Problem Qualifiers (1) Chest pain: Qualified Codes: R07.9 - Chest pain, unspecified (2) Hypertension: Qualified Codes: I10 - Essential (primary) hypertension Cullen Nguyen DO Jan 02, 2017 11:11
[2017-01-02] MEDS ORDERED: REGADENOSON INJ 0.4 MG/5 ML SYR ONE (12:03)
--- NOTE | 2017-01-02 14:09 | RADRPT ---
EXAM DATE/TIME: 01/02/2017 11:39 [place] COMPARISON: No previous studies available for comparison. INDICATIONS : Palpitations with chest pain. Abnormal EKG. DOSE: 27.2 mCi Tc99m Myoview at stress. 8.3 mCi Tc99m Myoview at rest. 0.4 mg Lexiscan STRESS SYMPTOMS: Dyspnea and nausea. EJECTION FRACTION: 57% MEDICAL HISTORY : Hypercholesterolemia. Diabetes mellitus type 2. Hernia, hiatal. Hypertension. Asthma. SURGICAL HISTORY : Total knee replacement, right. Tonsillectomy. ENCOUNTER: Initial ACUITY: 2 days PAIN SCALE: 4/10 LOCATION: chest TECHNIQUE: The patient underwent pharmacologic stress with infusion of prescribed dose. Continuous ECG tracing was monitored during stress. Gated SPECT imaging was performed after stress and conventional SPECT i maging was performed at rest. The examination was performed on a SPECT/CT scanner, both attenuation and non-corrected datasets were reviewed. FINDINGS: DISTRIBUTION: The maximum perfused segment at stress is in the anterolateral wall. PERFUSION STUDY: The pattern of perfusion at stress is within normal limits. GATED STUDY: There is intact wall motion and thickening without hypokinetic or dyskinetic segments. CONCLUSION: 1. Unremarkable myocardial perfusion scan.8 RISK CATEGORY: Low (<1% Annual Mortality Rate) Boby Zurita MD on January 02, 2017 at 14:07 Board Certified Radiologist. This report was verified electronically.
--- NOTE | 2017-01-03 08:12 | HHI.DS ---
Discharge Summary Admission Date Dec 31, 2016 at 17:48 Discharge Date: Jan 02, 2017 Admitting Diagnosis chest pain, rule out ACS (1) Chest pain Diagnosis: Principal Plan: - Cardiology consulted, recommendations appreciated - Nuclear stress test plan for today 01/02/17 - Troponins done and normal - Pain management with [place] 7.5/325 for pain 1-7, morphine 1 mg for pain 8-10. - Sublingual nitro PRN for chest pain - Cardiac monitoring continuously with pulse oximetry, no arrhythmias seen - Aspirin 81 mg daily - Continue atorvastatin 40 mg qHS - Echo: Ejection fraction of 50-55% ICD Codes: R07.9 - Chest pain, unspecified Status: Acute (2) Dyspnea on exertion Diagnosis: Secondary Plan: Patient is no longer complaining of any shortness of breath. Her sats are 100%. On room air -D-dimer appropriate level for her age - Rule out ACS (see above) - Continue inhalers from home for asthma/shortness of breath ICD Codes: R06.09 - Other forms of dyspnea Status: Acute (3) Hypercholesterolemia Diagnosis: Secondary Plan: - Continue atorvastatin 40 mg daily ICD Codes: E78.0 - Pure hypercholesterolemia Status: Chronic (4) Hypertension Diagnosis: Secondary Plan: -Continue home medications: amlodipine 10 mg daily, Losartan 100 mg daily ICD Codes: I10 - Essential (primary) hypertension Status: Chronic (5) Asthma Diagnosis: Secondary Plan: Continue home medications: - Albuterol PRN for shortness of breath/wheezing - Continue Serevent daily ICD Codes: J45.909 - Unspecified asthma, uncomplicated Status: Chronic (6) No contraindication to deep vein thrombosis (DVT) prophylaxis Diagnosis: Secondary Plan: - Lovenox 40 mg daily ICD Codes: Z78.9 - Other specified health status Status: Acute (7) Nutrition, metabolism, and development symptoms Diagnosis: Secondary Plan: PO fluids Heart healthy diet Electrolytes normal ICD Codes: R63.8 - Other symptoms and signs concerning food and fluid intake Status: Acute Consultants Cardiology Procedures Echocardiogram Nuclear stress test Brief History Ms Díaz is a 76 year old female with a history of diabetes type II, hyperlipidemia, hypertension, asthma, and first-degree AV block who presented to the ED with palpitations and no chest pain today but report of heaviness. Onset of symptoms was 3 weeks ago. She gets a sensation of heaviness that is not associated with exertion. The pain comes on suddenly and lasts for hours. It is located in the center of the chest. It does not radiate to her jaw or down her arms. The pressure can be intense. She also has sensation of palpitations that is associated with physical activity. She can feel her heart beating in her chest. It sometimes feels like a "thud". In addition, she has exertional dyspnea for the past 3 weeks, along with fatigue. She gets short of breath just walking to the kitchen. She gets lightheaded with exertion but does not have diaphoresis. She does not have coughing or wheezing. She reports no history of reflux. She reports no association of the chest pressure with meals. She reports no history of cardiac disease or congestive heart failure. She has no history of atrial fibrillation. She has no recent history of long travel. She is not bed ridden and no recent surgeries. Has documentation of cardiac catheterization in 1999. Her troponins were fine as was her telemetry overnight. Initially she denied any chest pain and only spoke about palpitations but when asked repeatedly did admit to chest heaviness. CBC/BMP: 12/31/16 1545 12/31/16 1545 Significant Findings Laboratory Tests Test 12/31/16 15:45 12/31/16 21:15 01/01/17 00:50 Red Cell Distribution Width 18.4 % (11.6-17.2) Monocytes (%) (Auto) 8.3 % (0.0-8.0) D-Dimer Quantitative (PE/DVT) 0.91 MG/L FEU (0.00-0.50) Sodium Level 135 MEQ/L (136-145) Estimat Glomerular Filtration Rate 80 ML/MIN (>89) Troponin I LESS THAN 0.02 NG/ML LESS THAN 0.02 NG/ML LESS THAN 0.02 NG/ML Imaging Last Impressions Myocardial Perfusion Scan Nuc Med 01/02/17 0000 Signed Impressions: Service Date/Time: Monday, January 02, 2017 11:39 - CONCLUSION: 1. Unremarkable myocardial perfusion scan.8 RISK CATEGORY: Low (<1%% Annual Mortality Rate) Boby Zurita MD Chest X-Ray 12/31/16 1454 Signed Impressions: Service Date/Time: December 15:32 - CONCLUSION: No acute disease. Kurt Mas Jr., MD PE at Discharge GENERAL: Well-nourished well-developed in no apparent distress lying in bed comfortably SKIN: Warm and dry. HEAD: Atraumatic. Normocephalic. EYES: Pupils equal and round. No scleral icterus. No injection or drainage. ENT: No nasal bleeding or discharge. Mucous membranes pink and moist. NECK: Trachea midline. No JVD. CARDIOVASCULAR: Regular rate and rhythm. RESPIRATORY: No accessory muscle use. Clear to auscultation. Breath sounds equal bilaterally. GASTROINTESTINAL: Abdomen soft, non-tender, nondistended. Hepatic and splenic margins not palpable. MUSCULOSKELETAL: Extremities without clubbing, cyanosis, or edema. No obvious deformities. NEUROLOGICAL: Awake and alert. No obvious cranial nerve deficits. Motor grossly within normal limits. Five out of 5 muscle strength in the arms and legs. Normal speech. PSYCHIATRIC: Appropriate mood and affect; insight and judgment normal. Hospital Course Patient was admitted on 12/31/16 for chest palpitations and pressure. Chest pain rule out was performed and her troponins were negative. She was evaluated by cardiology and a nuclear stress test was advised. She was found to be low risk per the stress test. Patient was discharged on 01/02/17 for further cardiac workup as an out patient. Pt Condition on Discharge: Stable Discharge Disposition: Discharge Home Discharge Instructions DIET: Follow Instructions for: Diabetic Diet Activities you can perform: Regular-No Restrictions Follow up Referrals: Cardiology - 1 Week with Cullen Nguyen DO PCP Follow-up - 1 Week with Antonio Lr Jr., MD Continued Medications: Albuterol 6.7 GM Inh (Proventil Hfa 6.7 GM Inh) 90 Mcg/Act Aer 2 PUFF INH Q4H PRN for SHORTNESS OF BREATH, #3 INHALER 3 Refills Amlodipine (Norvasc) 10 Mg Tab 10 MG PO DAILY for Blood Pressure Management, #90 TAB 3 Refills Atorvastatin (Atorvastatin) 40 Mg Tab 40 MG PO HS for Cholesterol Management, #90 TAB 3 Refills Budesonide Powder Inh (Pulmicort Flexhaler) 180 Mcg/Act Inhp 180 MCG INH Q12HR for Asthma Management, #3 INHALER 3 Refills Eszopiclone (Lunesta) 2 Mg Tab 3 MG PO HS PRN for INSOMNIA, #90 TAB 1 Refill Lorazepam (Lorazepam) 1 Mg Tab 1 MG PO BID PRN for ANXIETY, #180 TAB 1 Refill Losartan (Losartan) 100 Mg Tab 100 MG PO DAILY for Blood Pressure Management, TAB 0 Refills Metformin ER (Metformin ER) 1,000 Mg Zohreh 2000 MG PO HS for Blood Sugar Management, #180 TAB 3 Refills With evening meal Salmeterol Inh (Serevent Diskus Inh) 50 Mcg/Act Aero 2 INHALER INH DAILY, #3 INHALER 3 Refills Sitagliptin (Januvia) 100 Mg Tab 100 MG PO DAILY for Blood Sugar Management, #30 TAB 0 Refills Casey Sprague MD, R3 Jan 03, 2017 08:11
[2017-01-04] MEDS ORDERED: LYRI75CA PO (10:14)
== END 2017-01-02 15:36 | disposition home or self-care (01) ==
LOC: NEPC 14:47 → NEDA 17:48 → NEPFCDU 19:43
PROVIDERS: ADMIT Family Medicine; ATTEND Family Medicine
DX: R07.9 Chest pain, unspecified (principal); R00.2 Palpitations; R06.00 Dyspnea, unspecified; R63.8 Other symptoms and signs concerning food and fluid intake; R53.83 Other fatigue; R06.02 Shortness of breath; R07.2 Precordial pain; R42 Dizziness and giddiness; R94.31 Abnormal electrocardiogram [ECG] [EKG]; R11.0 Nausea; R55 Syncope and collapse; I10 Essential (primary) hypertension; J45.909 Unspecified asthma, uncomplicated; E78.5 Hyperlipidemia, unspecified; E78.00 Pure hypercholesterolemia, unspecified; E11.9 Type 2 diabetes mellitus without complications; I44.0 Atrioventricular block, first degree; I49.3 Ventricular premature depolarization; K21.9 Gastro-esophageal reflux disease without esophagitis; F41.9 Anxiety disorder, unspecified; M19.90 Unspecified osteoarthritis, unspecified site; Z79.899 Other long term (current) drug therapy; Z79.84 Long term (current) use of oral hypoglycemic drugs; Z87.891 Personal history of nicotine dependence; Z96.651 Presence of right artificial knee joint; Z66 Do not resuscitate
CPT/HCPCS: 71010; 78452; 80048; 82550; 82948; 83690; 83735; 83880; 84443; 84484; 85025; 85379; 85610; 85730; 93005; 93017; 93306; 96372; 99285; A9502; G0378; J1650; J1815; J2785

== ENCOUNTER → 2017-02-22 | Outpatient (CLI) | payer MEDICARE, BC ==
[~2017-02-22] MED LIST changes: +AMOX500T PO; +BENZ1CAP51 PO; -DOXY100C PO; -ESZO1TAB PO; -ESZO1TAB4 PO; +ESZO2 PO; +LYRI75CA PO; -METO25TA6 PO; -VALS1TAB64 PO
[2017-02-22 08:00] LABS: BASOPHIL # 0.1 TH/MM3 (0-0.2); BASOPHIL % 0.7 % (0.0-2.0); EOSINOPHIL # 0.3 TH/MM3 (0-0.4); EOSINOPHIL % 3.3 % (0.0-4.0); HEMATOCRIT 38.4 % (35.0-46.0); HEMO FLAGS DIFF FINAL; LYMPH % 25.9 % (9.0-44.0); LYMPHOCYTE # 2.1 TH/MM3 (1.0-4.8); MEAN CELL VOLUME 85.2 FL (80.0-100.0); MEAN CORPUSCULAR HEMOGLOBIN 27.9 PG (27.0-34.0); MEAN CORPUSCULAR HGB CONC 32.7 % (32.0-36.0); NEUT % 62.1 % (16.0-70.0); PLATELET COUNT 325 TH/MM3 (150-450); RED BLOOD COUNT 4.51 MIL/MM3 (4.00-5.30); RED CELL DISTRIBUTION WIDTH 16.1 % (11.6-17.2); WHITE BLOOD COUNT 8.1 TH/MM3 (4.0-11.0)
[2017-02-22 08:24] LABS: ALT (GPT) 39 U/L (10-53); ANION GAP 8 MEQ/L (5-15); AST (GOT) 28 U/L (15-37); BICARBONATE 25.6 MEQ/L (21.0-32.0); BLOOD UREA NITROGEN 10 MG/DL (7-18); CHLORIDE 103 MEQ/L (98-107); GLOMERULAR FILTRATION RATE 72 ML/MIN (>89); GLUCOSE,FASTING 127 MG/DL (74-99); POTASSIUM 3.8 MEQ/L (3.5-5.1); SODIUM (NA) 137 MEQ/L (136-145)
[2017-02-22 08:27] LABS: ALKALINE PHOSPHATASE 76 U/L (45-117); HDL CHOLESTEROL 61.2 MG/DL (40.0-60.0); LDL CHOLESTEROL 75 MG/DL (0-99); TOTAL BILIRUBIN ADULT 0.3 MG/DL (0.2-1.0)
[2017-02-22 09:19] LABS: HEMOGLOBIN A1a 1.4 %; HEMOGLOBIN A1b 2.3 %; HEMOGLOBIN Ao 83.4 %; HEMOGLOBIN LA1C 2.1 %; HEMOGLOBIN P3 3.8 %
== END ==
LOC: CLAB 07:33
PROVIDERS: ATTEND Family Medicine
DX: E11.9 Type 2 diabetes mellitus without complications (principal); E78.00 Pure hypercholesterolemia, unspecified; E78.1 Pure hyperglyceridemia; D64.9 Anemia, unspecified
CPT/HCPCS: 36415; 80053; 80061; 83036; 85025; G0463; 99214

== ENCOUNTER → 2017-04-12 | Outpatient (CLI) | payer MEDICARE, BC ==
[~2017-04-12] MED LIST changes: -AMOX500T PO; -BENZ1CAP51 PO
[2017-04-12 11:32] LABS: PROTHROMBIN TIME - PATIENT 10.1 SEC (9.8-11.6)
== END ==
LOC: CLAB 10:21
PROVIDERS: ATTEND Family Medicine
DX: Z01.818 Encounter for other preprocedural examination (principal)
CPT/HCPCS: 36415; 85610; 93005; G0463; 99214

== ENCOUNTER → 2017-09-01 | Outpatient (CLI) | payer MEDICARE, BC ==
[2017-09-01 08:32] LABS: AUTOMATED NEUTROPHIL # 3.9 TH/MM3 (1.8-7.7); BASOPHIL # 0.1 TH/MM3 (0-0.2); BASOPHIL % 0.8 % (0.0-2.0); EOSINOPHIL # 0.2 TH/MM3 (0-0.4); EOSINOPHIL % 3.1 % (0.0-4.0); HEMATOCRIT 36.2 % (35.0-46.0); HEMOGLOBIN 12.2 GM/DL (11.6-15.3); LYMPH % 36.8 % (9.0-44.0); LYMPHOCYTE # 2.8 TH/MM3 (1.0-4.8); MEAN CELL VOLUME 82.7 FL (80.0-100.0); MEAN CORPUSCULAR HEMOGLOBIN 27.9 PG (27.0-34.0); MEAN CORPUSCULAR HGB CONC 33.7 % (32.0-36.0); MEAN PLATELET VOLUME 8.2 FL (7.0-11.0); MONO % 7.5 % (0.0-8.0); MONOCYTE # 0.6 TH/MM3 (0-0.9); NEUT % 51.8 % (16.0-70.0); PLATELET COUNT 284 TH/MM3 (150-450); RED BLOOD COUNT 4.38 MIL/MM3 (4.00-5.30); RED CELL DISTRIBUTION WIDTH 19.4 % (11.6-17.2); WHITE BLOOD COUNT 7.6 TH/MM3 (4.0-11.0)
[2017-09-01 09:01] LABS: ALT (GPT) 30 U/L (10-53)
[2017-09-01 09:03] LABS: ALKALINE PHOSPHATASE 76 U/L (45-117); TOTAL BILIRUBIN ADULT 0.3 MG/DL (0.2-1.0); TOTAL PROTEIN 7.4 GM/DL (6.4-8.2)
[2017-09-01 09:11] LABS: ALBUMIN 3.8 GM/DL (3.4-5.0); AST (GOT) 32 U/L (15-37); BICARBONATE 22.7 MEQ/L (21.0-32.0); BLOOD UREA NITROGEN 13 MG/DL (7-18); CALCIUM 8.9 MG/DL (8.5-10.1); CHLORIDE 101 MEQ/L (98-107); CREATININE 0.94 MG/DL (0.50-1.00); GLOMERULAR FILTRATION RATE 58 ML/MIN (>89); GLUCOSE,FASTING 116 MG/DL (74-99); SODIUM (NA) 134 MEQ/L (136-145)
[2017-09-01 16:04] LABS: HEMOGLOBIN A1C 6.3 % (4.3-6.0)
== END ==
LOC: CLAB 07:57
PROVIDERS: ATTEND Family Medicine
DX: E78.00 Pure hypercholesterolemia, unspecified (principal); D64.9 Anemia, unspecified; I10 Essential (primary) hypertension; D56.5 Hemoglobin E-beta thalassemia; E11.9 Type 2 diabetes mellitus without complications; Z79.891 Long term (current) use of opiate analgesic
CPT/HCPCS: 36415; 80053; 83036; 85025